=== PATIENT | male | born 1965 | race Two or more races ===

== ENCOUNTER 2020-01-14 09:55 | Outpatient (REF) | payer OTHER, SELFPAY ==
[2020-01-14 11:11] LABS: MANUAL DIFF FLAG NO
[2020-01-14 11:31] LABS: Basophils Percent Auto 0.6 % (0-2); Eosinophils Absolute Auto 0.1 X10*3/uL (0.0-0.4); Hematocrit 43.7 % (42-52); Imm Gran Abs Auto 0.01 X10*3/uL (0.00-0.03); Imm Gran Pct Auto 0.1 % (0.0-0.4); Lymphocytes Absolute Auto 3.3 X10*3/uL (1.2-4.9); Lymphocytes Percent Auto 48.4 % (20-40); Mean Corpuscular Hemoglobin 27.8 pg (27.0-33.0); Mean Corpuscular Volume 86.9 fL (80-98); Mean Platelet Volume 11.2 fL (9.4-12.4); Monocytes Absolute Auto 0.7 X10*3/uL (0.1-1.2); Monocytes Percent Auto 10.1 % (2-11); Neutrophils Absolute Auto 2.7 X10*3/uL (2.0-8.3); Neutrophils Percent Auto 39.8 % (45-73); Platelet Count 211 X10*3/uL (160-400); Red Blood Count 5.03 X10*6/uL (4.60-5.80); Red Cell Distribution Width 13.2 % (11.0-16.0); White Blood Count 6.8 X10*3/uL (4.8-10.8)
[2020-01-14 11:36] LABS: Alanine Aminotransferase 36 U/L (0-40); Albumin Level 4.2 g/dL (3.5-5.0); Alkaline Phosphatase 65 U/L (39-117); Anion Gap 13 (12-20); Aspartate Amino Transferase 24 U/L (5-37); Bilirubin Total 0.5 mg/dL (0.0-1.0); Blood Urea Nitrogen 13 mg/dL (9-16); Calcium 9.1 mg/dL (8.4-10.2); Carbon Dioxide 27 mmol/L (22-29); Chloride 103 mmol/L (96-108); Cholesterol 216 mg/dL; Estimated Glomerular Filt Rate > 60; Glucose Fasting 92 mg/dL (60-99); HDL Cholesterol 69 mg/dL; LDL Cholesterol Calculated 133 mg/dl; Potassium 4.4 mmol/l (3.3-5.1); Sodium 139 mmol/L (135-145); Total Protein 7.2 g/dL (6.5-8.0); Triglycerides 73 mg/dL
[2020-01-14 11:49] LABS: Prostate Specific Antigen Scr 2.57 ng/mL (<0.05-4.0); TSH reflex Free T4 1.99 mIU/mL (0.32-4.0)
[2020-01-19 12:23] LABS: Testosterone, Total 488 ng/dL (250-1100)
== END 2020-01-14 09:56 | disposition home or self-care (01) ==
LOC: HO.LAB 09:55
PROVIDERS: Visit Provider Family Medicine
DX: N52.9 Male erectile dysfunction, unspecified (principal); Z00.00 Encounter for general adult medical examination without abnormal findings; Z12.5 Encounter for screening for malignant neoplasm of prostate
CPT/HCPCS: 36415; 80053; 80061; 84153; 84403; 84443; 85025

== ENCOUNTER 2020-03-30 14:13 | Emergency (ER) | payer OTHER, SELFPAY ==
[2020-03-30 16:07] VITALS: BP 128/56; PULSE 85; RESP 18; TEMP 36.6; O2SAT 100; BMI 25.0
== END 2020-03-30 20:42 | disposition left against medical advice (07) ==
PROVIDERS: Emergency Provider Emergency Medicine; PCP Family Medicine
DX: F41.9 Anxiety disorder, unspecified (principal)
CPT/HCPCS: 99281; 99282

== ENCOUNTER 2020-04-01 06:01 | Outpatient (REF) | payer OTHER, SELFPAY ==
--- NOTE | ~2020-04-01 | XR_ITS ---
EXAMINATION: XR CHEST CLINICAL INFORMATION: Chest pain COMPARISON: None TECHNIQUE: 2 views of the chest were obtained. FINDINGS: No significant abnormality is noted involving the heart, lungs, mediastinum, bony thorax or soft tissues. XR/XR chest 2V IMPRESSION: No acute disease.
[2020-04-01 07:37] LABS: MANUAL DIFF FLAG NO
[2020-04-01 07:41] LABS: Basophils Absolute Auto 0.1 X10*3/uL (0.0-0.2); Basophils Percent Auto 0.7 % (0-2); Eosinophils Absolute Auto 0.1 X10*3/uL (0.0-0.4); Eosinophils Percent Auto 1.6 % (0-4); Hematocrit 40.5 % (42-52); Hemoglobin 13.2 g/dl (14.0-18.0); Imm Gran Abs Auto 0.01 X10*3/uL (0.00-0.03); Imm Gran Pct Auto 0.1 % (0.0-0.4); Lymphocytes Absolute Auto 3.7 X10*3/uL (1.2-4.9); Lymphocytes Percent Auto 54.8 % (20-40); Mean Corpuscular HGB Conc 32.6 g/dl (31.0-36.0); Mean Corpuscular Hemoglobin 28.1 pg (27.0-33.0); Mean Corpuscular Volume 86.2 fL (80-98); Mean Platelet Volume 11.6 fL (9.4-12.4); Monocytes Absolute Auto 0.7 X10*3/uL (0.1-1.2); Monocytes Percent Auto 10.6 % (2-11); Neutrophils Absolute Auto 2.2 X10*3/uL (2.0-8.3); Neutrophils Percent Auto 32.2 % (45-73); Platelet Count 197 X10*3/uL (160-400); Red Cell Distribution Width 13.2 % (11.0-16.0); White Blood Count 6.8 X10*3/uL (4.8-10.8)
[2020-04-01 07:51] LABS: Glucose Urine UA NEG (NEG); Leukocyte Esterase Urine NEG (NEG); Nitrite Urine NEG (NEG); PH 6.5 (5.0-8.0); Urine Blood NEG (NEG); Urine Ketones NEG (NEG); Urine Protein NEG (NEG-TRACE)
[2020-04-01 07:53] LABS: Appearance Urine CLEAR; Color Urine YELLOW
[2020-04-01 08:16] LABS: Alanine Aminotransferase 34 U/L (0-40); Albumin Level 4.1 g/dL (3.5-5.0); Alkaline Phosphatase 56 U/L (39-117); Anion Gap 12 (12-20); Aspartate Amino Transferase 28 U/L (5-37); Bilirubin Total 0.3 mg/dL (0.0-1.0); Blood Urea Nitrogen 14 mg/dL (9-16); Calcium 9.4 mg/dL (8.4-10.2); Carbon Dioxide 27 mmol/L (22-29); Chloride 105 mmol/L (96-108); Estimated Glomerular Filt Rate > 60; Glucose Random 101 mg/dL (60-115); Potassium 4.1 mmol/L (3.3-5.1); Sodium 140 mmol/L (135-145); Total Protein 6.8 g/dL (6.5-8.0); Troponin-I High Sensitivity < 3.5 ng/L (<3.5-35.0)
== END 2020-04-01 06:02 | disposition home or self-care (01) ==
LOC: HO.LAB 06:01
PROVIDERS: PCP Family Medicine; Visit Provider Family Medicine
DX: G47.9 Sleep disorder, unspecified (principal); R07.89 Other chest pain
CPT/HCPCS: 36415; 71046; 80053; 81003; 84484; 85025

== ENCOUNTER 2020-05-27 06:20 | Outpatient (REF) | payer OTHER, SELFPAY ==
[2020-05-27 07:43] LABS: Anion Gap 11 (12-20); Blood Urea Nitrogen 14 mg/dL (9-16); Calcium 8.9 mg/dL (8.4-10.2); Carbon Dioxide 29 mmol/L (22-29); Chloride 104 mmol/L (96-108); Estimated Glomerular Filt Rate > 60; Glucose Fasting 96 mg/dL (60-99); Potassium 4.7 mmol/L (3.3-5.1); Sodium 139 mmol/L (135-145)
== END 2020-05-27 06:21 | disposition home or self-care (01) ==
LOC: HO.LAB 06:20
PROVIDERS: Visit Provider Family Medicine
DX: R73.01 Impaired fasting glucose (principal)
CPT/HCPCS: 36415; 80048

== ENCOUNTER 2020-12-01 18:03 | Outpatient (REF) | payer OTHER, SELFPAY ==
[2020-12-01 18:10] LABS: Appearance Urine CLEAR; Color Urine YELLOW; Glucose Urine UA NEG (NEG); Leukocyte Esterase Urine NEG (NEG); Nitrite Urine NEG (NEG); Urine Blood NEG (NEG); Urine Ketones NEG (NEG); Urine Protein NEG (NEG-TRACE)
== END 2020-12-01 18:04 | disposition home or self-care (01) ==
LOC: HO.LNP 18:03
PROVIDERS: Visit Provider Family Medicine
DX: Z00.00 Encounter for general adult medical examination without abnormal findings (principal)
CPT/HCPCS: 81003

== ENCOUNTER 2020-12-07 07:09 | Outpatient (REF) | payer OTHER, SELFPAY ==
[2020-12-07 08:41] LABS: Anion Gap 11 (12-20); Blood Urea Nitrogen 14 mg/dL (9-16); Calcium 8.6 mg/dL (8.4-10.2); Carbon Dioxide 26 mmol/L (22-29); Chloride 106 mmol/L (96-108); Estimated Glomerular Filt Rate > 60; Glucose Random 96 mg/dL (60-115); Potassium 4.1 mmol/L (3.3-5.1); Sodium 139 mmol/L (135-145)
== END 2020-12-07 07:10 | disposition home or self-care (01) ==
LOC: HO.LAB 07:09
PROVIDERS: PCP Family Medicine; Visit Provider Family Medicine
DX: Z00.00 Encounter for general adult medical examination without abnormal findings (principal)
CPT/HCPCS: 36415; 80048

== ENCOUNTER → 2021-01-21 13:42 | Outpatient (BNVA) | payer OTHER, SELFPAY | PROVIDERS: PCP Family Medicine; Referring Provider Family Medicine; Visit Provider Nurse Practitioner | DX: A04.8 Other specified bacterial intestinal infections (principal); R10.13 Epigastric pain | CPT/HCPCS: 99202 ==

== ENCOUNTER 2021-02-16 09:33 | Outpatient (REF) | payer OTHER, SELFPAY ==
--- NOTE | ~2021-02-16 | US_ITS ---
EXAMINATION: US ABDOMEN COMPLETE CLINICAL INFORMATION: Epigastric pain. COMPARISON: None TECHNIQUE: Real-time imaging of the abdominal viscera. FINDINGS: PANCREAS: Normal. ABDOMINAL AORTA: The proximal, mid, and distal segments are normal in caliber. INFERIOR VENA CAVA: Visualized portions are normal. LIVER: Normal. The liver is normal in size. The liver contour is normal. Parenchymal echogenicity is normal. No focal hepatic lesion. There is no intrahepatic biliary duct dilatation seen. GALLBLADDER: Normal. The gallbladder is physiologically distended without evidence of stones, sludge, polyps, wall thickening or pericholecystic fluid. COMMON BILE DUCT: Normal in caliber measuring 0.2 cm in diameter. RIGHT KIDNEY: Normal. No hydronephrosis. No renal calculi or focal parenchymal lesions. The kidney measures 9.1 cm in maximum dimension. LEFT KIDNEY: There is a small 7 mm cyst in the midpole. No hydronephrosis or renal calculi. The kidney measures 9.9 cm in maximum dimension. SPLEEN: Normal. The spleen measures 8.3 cm in maximum dimension. FREE FLUID: None. US/US abdomen complete IMPRESSION: Small left renal cyst otherwise unremarkable exam.
== END 2021-02-16 09:34 | disposition home or self-care (01) ==
LOC: HO.HMGCX 09:33
PROVIDERS: Visit Provider Nurse Practitioner
DX: R10.13 Epigastric pain (principal)
CPT/HCPCS: 76700

== ENCOUNTER 2021-02-26 07:13 | Outpatient (REF) | payer OTHER, SELFPAY ==
[2021-02-26 07:36] LABS: MANUAL DIFF FLAG NO
[2021-02-26 08:13] LABS: Basophils Percent Auto 0.5 % (0-2); Eosinophils Absolute Auto 0.1 X10*3/uL (0.0-0.4); Eosinophils Percent Auto 1.1 % (0-4); Hematocrit 41.7 % (42.0-52.0); Hemoglobin 13.2 g/dl (14.0-18.0); Imm Gran Abs Auto 0.01 X10*3/uL (0.00-0.03); Imm Gran Pct Auto 0.1 % (0.0-0.4); Lymphocytes Absolute Auto 3.8 X10*3/uL (1.2-4.9); Lymphocytes Percent Auto 51.3 % (20-40); Mean Corpuscular HGB Conc 31.7 g/dl (31.0-36.0); Mean Corpuscular Hemoglobin 27.3 pg (27.0-33.0); Mean Corpuscular Volume 86.2 fL (80.0-98.0); Mean Platelet Volume 10.4 fL (9.4-12.4); Monocytes Absolute Auto 0.7 X10*3/uL (0.1-1.2); Monocytes Percent Auto 9.2 % (2-11); Neutrophils Absolute Auto 2.8 x10*3/uL (2.0-8.3); Neutrophils Percent Auto 37.8 % (45-73); Platelet Count 220 X10*3/uL (160-400); Red Blood Count 4.84 X10*6/uL (4.60-5.80); Red Cell Distribution Width 13.1 % (11.0-16.0); White Blood Count 7.5 X10*3/uL (4.8-10.8)
[2021-02-26 08:48] LABS: Alanine Aminotransferase 37 U/L (0-40); Alkaline Phosphatase 74 U/L (39-117); Anion Gap 9 (12-20); Aspartate Amino Transferase 29 U/L (5-37); Bilirubin Total 0.3 mg/dL (0.0-1.0); Blood Urea Nitrogen 13 mg/dL (9-16); Carbon Dioxide 28 mmol/L (22-29); Chloride 106 mmol/L (96-108); Cholesterol 210 mg/dL; Estimated Glomerular Filt Rate > 60; Glucose Fasting 97 mg/dL (60-99); HDL Cholesterol 59 mg/dL; LDL Cholesterol Calculated 133 mg/dl; Potassium 4.2 mmol/L (3.3-5.1); Sodium 139 mmol/L (135-145); Triglycerides 91 mg/dL
[2021-02-26 09:13] LABS: Prostate Specific Antigen Scr 6.13 ng/mL (<0.05-4.0); TSH reflex Free T4 3.24 uIU/mL (0.32-4.0)
[2021-02-26 10:15] LABS: Appearance Urine CLEAR; Color Urine YELLOW; Glucose Urine UA NEG (NEG); Leukocyte Esterase Urine NEG (NEG); Nitrite Urine NEG (NEG); Urine Blood NEG (NEG); Urine Ketones NEG (NEG); Urine Protein NEG (NEG-TRACE)
== END 2021-02-26 07:14 | disposition home or self-care (01) ==
LOC: HO.LAB 07:13
PROVIDERS: Visit Provider Family Medicine
DX: Z00.00 Encounter for general adult medical examination without abnormal findings (principal); Z12.5 Encounter for screening for malignant neoplasm of prostate
CPT/HCPCS: 36415; 80053; 80061; 81003; 84153; 84443; 85025

== ENCOUNTER → 2021-03-03 07:21 | Outpatient (BNVA) | payer OTHER, SELFPAY | PROVIDERS: PCP Family Medicine; Referring Provider Family Medicine; Visit Provider Nurse Practitioner | DX: R10.13 Epigastric pain (principal); A04.8 Other specified bacterial intestinal infections | CPT/HCPCS: 99212 ==

== ENCOUNTER 2021-03-03 09:08 | Outpatient (REF) | payer OTHER, SELFPAY | END 2021-03-03 09:09 | disposition home or self-care (01) | LOC: HO.LNP 09:08 | PROVIDERS: Visit Provider Nurse Practitioner | DX: A04.8 Other specified bacterial intestinal infections (principal) | CPT/HCPCS: 87338 ==

== ENCOUNTER 2021-03-26 07:06 | Outpatient (REF) | payer OTHER, SELFPAY ==
[2021-03-26 07:25] LABS: MANUAL DIFF FLAG NO
[2021-03-26 08:03] LABS: Basophils Percent Auto 0.5 % (0-2); Eosinophils Absolute Auto 0.1 X10*3/uL (0.0-0.4); Hemoglobin 13.2 g/dl (14.0-18.0); Imm Gran Abs Auto 0.01 X10*3/uL (0.00-0.03); Imm Gran Pct Auto 0.2 % (0.0-0.4); Immature Retic Fraction 11.1 % (2.3-13.4); Lymphocytes Absolute Auto 3.5 X10*3/uL (1.2-4.9); Lymphocytes Percent Auto 56.9 % (20-40); Mean Corpuscular HGB Conc 32.2 g/dl (31.0-36.0); Mean Corpuscular Hemoglobin 27.6 pg (27.0-33.0); Mean Corpuscular Volume 85.6 fL (80.0-98.0); Mean Platelet Volume 10.2 fL (9.4-12.4); Monocytes Absolute Auto 0.5 X10*3/uL (0.1-1.2); Monocytes Percent Auto 8.9 % (2-11); Neutrophils Percent Auto 32.5 % (45-73); Platelet Count 220 X10*3/uL (160-400); Red Blood Count 4.79 X10*6/uL (4.60-5.80); Red Cell Distribution Width 12.9 % (11.0-16.0); Retic HGB Equivalent 33.2 pg (30.0-35.0); Reticulocyte Percent 1.1 % (0.5-1.8); Reticulocytes Absolute 0.051 X10*6/uL (0.026-0.095); White Blood Count 6.1 X10*3/uL (4.8-10.8)
[2021-03-26 08:25] LABS: Alanine Aminotransferase 50 U/L (0-40); Albumin Level 4.1 g/dL (3.5-5.0); Alkaline Phosphatase 73 U/L (39-117); Anion Gap 9 (12-20); Aspartate Amino Transferase 37 U/L (5-37); Bilirubin Total 0.6 mg/dL (0.0-1.0); Blood Urea Nitrogen 17 mg/dL (9-16); Calcium 9.3 mg/dL (8.4-10.2); Carbon Dioxide 29 mmol/L (22-29); Chloride 105 mmol/L (96-108); Cholesterol 192 mg/dL; Estimated Glomerular Filt Rate > 60; Glucose Random 94 mg/dL (60-115); HDL Cholesterol 54 mg/dL; Iron 81 mcg/dL (45-160); LDL Cholesterol Calculated 125 mg/dl; Percent Iron Saturation 24 % (15-50); Potassium 4.4 mmol/L (3.3-5.1); Sodium 139 mmol/L (135-145); Total Iron Binding Capacity 343 mcg/dL (228-428); Total Protein 7.1 g/dL (6.5-8.0); Triglycerides 65 mg/dL; Unsaturated Iron Binding 262 ug/dL
[2021-03-26 08:45] LABS: Ferritin 47 ng/mL (20-250); TSH reflex Free T4 3.13 uIU/mL (0.32-4.0)
[2021-03-26 08:50] LABS: Appearance Urine CLEAR; Color Urine YELLOW; Glucose Urine UA NEG (NEG); Leukocyte Esterase Urine NEG (NEG); Nitrite Urine NEG (NEG); Specific Gravity - Urine 1.025 (1.005-1.025); Urine Blood NEG (NEG); Urine Ketones NEG (NEG); Urine Protein NEG (NEG-TRACE)
[2021-03-28 09:02] LABS: Folate 17.4 ng/mL (> or = 4.0); Vitamin B12 859 pg/mL (200-900)
[2021-03-28 14:17] LABS: Haptoglobin 88 mg/dL (43-212)
== END 2021-03-26 07:07 | disposition home or self-care (01) ==
LOC: HO.LAB 07:06
PROVIDERS: PCP Family Medicine; Visit Provider Family Medicine
DX: Z00.00 Encounter for general adult medical examination without abnormal findings (principal); E53.8 Deficiency of other specified B group vitamins; D64.9 Anemia, unspecified
CPT/HCPCS: 36415; 80053; 80061; 81003; 82607; 82728; 82746; 83010; 83540; 84443; 85025; 85045

== ENCOUNTER → 2021-04-14 07:13 | Outpatient (BNVA) | payer OTHER, SELFPAY | PROVIDERS: PCP Family Medicine; Visit Provider Nurse Practitioner | DX: A04.8 Other specified bacterial intestinal infections (principal) | CPT/HCPCS: 99212 ==

== ENCOUNTER 2021-04-25 09:44 | Outpatient (REF) | payer OTHER, SELFPAY ==
[2021-04-25 11:46] LABS: Alanine Aminotransferase 40 U/L (0-40); Albumin Level 4.1 g/dL (3.5-5.0); Alkaline Phosphatase 68 U/L (39-117); Anion Gap 12 (12-20); Aspartate Amino Transferase 31 U/L (5-37); Bilirubin Direct 0.2 mg/dL (0.0-0.5); Bilirubin Total 0.7 mg/dL (0.0-1.0); Blood Urea Nitrogen 12 mg/dL (9-16); Calcium 9.2 mg/dL (8.4-10.2); Carbon Dioxide 27 mmol/L (22-29); Chloride 101 mmol/L (96-108); Estimated Glomerular Filt Rate > 60; Glucose Fasting 96 mg/dL (60-99); Potassium 4.3 mmol/L (3.3-5.1); Sodium 136 mmol/L (135-145); Total Protein 6.9 g/dL (6.5-8.0)
== END 2021-04-25 09:45 | disposition home or self-care (01) ==
LOC: HO.LAB 09:44
PROVIDERS: PCP Family Medicine; Visit Provider Family Medicine
DX: Z00.00 Encounter for general adult medical examination without abnormal findings (principal); R74.01 Elevation of levels of liver transaminase levels
CPT/HCPCS: 36415; 80053; 80076; 82248

== ENCOUNTER 2021-05-27 06:32 | Outpatient (REF) | payer OTHER, SELFPAY ==
--- NOTE | ~2021-05-27 | XR_ITS ---
EXAMINATION: XR ABDOMEN KUB CLINICAL INDICATION: Unspecified abdominal pain COMPARISON: Abdominal ultrasound February 16, 2021 TECHNIQUE: AP view of the abdomen. FINDINGS: No dilated air-filled loops of small bowel to suggest an obstructive process. There is a moderate to severe stool burden throughout the majority the colon. There are postsurgical changes of the lumbosacral junction. Visualized lung bases are well aerated. Prominent vascular calcifications of the pelvis. XR/XR KUB IMPRESSION: Moderate to severe colonic stool burden suggesting constipation.
[2021-05-27 06:51] LABS: MANUAL DIFF FLAG NO
[2021-05-27 07:09] LABS: Basophils Percent Auto 0.6 % (0-2); Eosinophils Absolute Auto 0.1 X10*3/uL (0.0-0.4); Eosinophils Percent Auto 1.1 % (0-4); Hematocrit 41.9 % (42.0-52.0); Hemoglobin 13.6 g/dl (14.0-18.0); Imm Gran Abs Auto 0.02 X10*3/uL (0.00-0.03); Imm Gran Pct Auto 0.3 % (0.0-0.4); Lymphocytes Absolute Auto 3.4 X10*3/uL (1.2-4.9); Lymphocytes Percent Auto 54.7 % (20-40); Mean Corpuscular HGB Conc 32.5 g/dl (31.0-36.0); Mean Corpuscular Hemoglobin 27.8 pg (27.0-33.0); Mean Corpuscular Volume 85.7 fL (80.0-98.0); Mean Platelet Volume 10.7 fL (9.4-12.4); Monocytes Absolute Auto 0.6 X10*3/uL (0.1-1.2); Monocytes Percent Auto 8.7 % (2-11); Neutrophils Absolute Auto 2.2 x10*3/uL (2.0-8.3); Neutrophils Percent Auto 34.6 % (45-73); Platelet Count 197 X10*3/uL (160-400); Red Blood Count 4.89 X10*6/uL (4.60-5.80); Red Cell Distribution Width 12.8 % (11.0-16.0); White Blood Count 6.3 X10*3/uL (4.8-10.8)
[2021-05-27 07:52] LABS: Alanine Aminotransferase 26 U/L (0-40); Alkaline Phosphatase 61 U/L (39-117); Anion Gap 10 (12-20); Aspartate Amino Transferase 27 U/L (5-37); Bilirubin Total 0.5 mg/dL (0.0-1.0); Blood Urea Nitrogen 16 mg/dL (9-16); Calcium 9.3 mg/dL (8.4-10.2); Carbon Dioxide 27 mmol/L (22-29); Chloride 104 mmol/L (96-108); Estimated Glomerular Filt Rate > 60; Glucose Random 100 mg/dL (60-115); Potassium 4.2 mmol/L (3.3-5.1); Sodium 137 mmol/L (135-145); Total Protein 6.7 g/dL (6.5-8.0)
[2021-05-27 08:05] LABS: Appearance Urine CLEAR; Color Urine YELLOW; Glucose Urine UA NEG (NEG); Leukocyte Esterase Urine NEG (NEG); Nitrite Urine NEG (NEG); PH 6.5 (5.0-8.0); Urine Blood NEG (NEG); Urine Ketones NEG (NEG); Urine Protein NEG (NEG-TRACE)
== END 2021-05-27 06:33 | disposition home or self-care (01) ==
LOC: HO.XRAY 06:32
PROVIDERS: PCP Family Medicine; Visit Provider Family Medicine
DX: Z00.00 Encounter for general adult medical examination without abnormal findings (principal); R10.9 Unspecified abdominal pain
CPT/HCPCS: 36415; 74018; 80053; 81003; 85025

== ENCOUNTER 2021-06-10 11:04 | Outpatient (REF) | payer OTHER, SELFPAY ==
[2021-06-10 12:31] LABS: MANUAL DIFF FLAG NO
[2021-06-10 12:59] LABS: Basophils Percent Auto 0.6 % (0-2); Eosinophils Absolute Auto 0.1 X10*3/uL (0.0-0.4); Eosinophils Percent Auto 0.8 % (0-4); Hematocrit 41.4 % (42.0-52.0); Hemoglobin 13.3 g/dl (14.0-18.0); Imm Gran Abs Auto 0.02 X10*3/uL (0.00-0.03); Imm Gran Pct Auto 0.3 % (0.0-0.4); Lymphocytes Absolute Auto 2.8 X10*3/uL (1.2-4.9); Lymphocytes Percent Auto 42.2 % (20-40); Mean Corpuscular HGB Conc 32.1 g/dl (31.0-36.0); Mean Corpuscular Hemoglobin 27.7 pg (27.0-33.0); Mean Corpuscular Volume 86.3 fL (80.0-98.0); Mean Platelet Volume 10.4 fL (9.4-12.4); Monocytes Absolute Auto 0.5 X10*3/uL (0.1-1.2); Monocytes Percent Auto 7.8 % (2-11); Neutrophils Absolute Auto 3.2 x10*3/uL (2.0-8.3); Neutrophils Percent Auto 48.3 % (45-73); Platelet Count 203 X10*3/uL (160-400); Red Cell Distribution Width 13.2 % (11.0-16.0); White Blood Count 6.6 X10*3/uL (4.8-10.8)
[2021-06-10 13:22] LABS: Iron 80 mcg/dL (45-160); Percent Iron Saturation 23 % (15-50); Total Iron Binding Capacity 347 mcg/dL (228-428); Unsaturated Iron Binding 267 ug/dL
[2021-06-10 13:38] LABS: Prostate Specific Antigen 5.52 ng/mL (<0.05-4.0)
[2021-06-10 14:31] LABS: Folate > 20.0 ng/mL (> or = 4.0); Vitamin B12 848 pg/mL (200-900)
== END 2021-06-10 11:05 | disposition home or self-care (01) ==
LOC: HO.LAB 11:04
PROVIDERS: Absent Provider Family Medicine; PCP Family Medicine; Visit Provider Urology
DX: Z00.00 Encounter for general adult medical examination without abnormal findings (principal); Z12.5 Encounter for screening for malignant neoplasm of prostate; N13.8 Other obstructive and reflux uropathy; N40.1 Benign prostatic hyperplasia with lower urinary tract symptoms; R39.15 Urgency of urination; D64.9 Anemia, unspecified; E53.8 Deficiency of other specified B group vitamins
CPT/HCPCS: 36415; 51798; 82607; 82746; 83540; 84153; 85025; 99202

== ENCOUNTER → 2021-08-05 08:12 | Outpatient (BNVA) | payer OTHER, SELFPAY | PROVIDERS: PCP Family Medicine; Referring Provider Family Medicine; Visit Provider Nurse Practitioner | DX: K64.9 Unspecified hemorrhoids (principal) | CPT/HCPCS: 99212 ==

== ENCOUNTER → 2021-08-17 09:13 | Outpatient (BNVA) | payer OTHER, SELFPAY | PROVIDERS: PCP Family Medicine; Visit Provider Urology | DX: R39.15 Urgency of urination (principal); R39.12 Poor urinary stream; R97.20 Elevated prostate specific antigen [PSA] | CPT/HCPCS: Q3014 ==

== ENCOUNTER 2021-08-19 07:27 | Outpatient (REF) | payer OTHER, SELFPAY | END 2021-08-19 07:28 | disposition home or self-care (01) | LOC: HO.LAB 07:27 | PROVIDERS: PCP Family Medicine; Visit Provider Urology | DX: Z12.5 Encounter for screening for malignant neoplasm of prostate (principal); N40.1 Benign prostatic hyperplasia with lower urinary tract symptoms; N13.8 Other obstructive and reflux uropathy | CPT/HCPCS: 36415; 84153 ==

== ENCOUNTER → 2021-08-24 15:42 | Outpatient (BNVA) | payer OTHER, SELFPAY | PROVIDERS: PCP Family Medicine; Visit Provider Surgery | DX: K64.8 Other hemorrhoids (principal); K64.4 Residual hemorrhoidal skin tags | CPT/HCPCS: 46600; 99202 ==

== ENCOUNTER → 2021-09-28 09:21 | Outpatient (BNVA) | payer OTHER, SELFPAY | PROVIDERS: PCP Family Medicine; Visit Provider Urology | DX: R39.12 Poor urinary stream (principal) | CPT/HCPCS: Q3014 ==

== ENCOUNTER 2021-10-27 11:58 | Outpatient (REF) | payer OTHER, SELFPAY ==
[2021-10-27 12:17] VITALS: BP 127/69; PULSE 77; RESP 16; TEMP 36.7; O2SAT 95; BMI 24.5
[2021-10-27 12:40] VITALS: BP 96/33; PULSE 52; RESP 16; O2SAT 100
--- NOTE | 2021-10-27 12:40 | W.PM.OPN ---
Operative Note Operative Note Date of Service: 10/27/21 Narrative: Preoperative diagnosis: Elevated PSA Postoperative diagnosis: Elevated PSA Procedure: 1. transrectal ultrasound measurement of prostate 2. transrectal ultrasound-guided pudendal nerve block 3. transrectal ultrasound-guided prostate biopsy 12 core Surgeon: Dr. Ranjit Prajapati Anesthetic: Local Indications for procedure: Elevated PSA 5.4 on 5AR Procedure: After informed consent was verified, the patient was brought into the procedure area and lay left-hand side down on the table. Patient identity confirmed. Perioperative antibiotics confirmed. Safety pause time out performed. DANIEL performed to dilate rectal sphincter Iodine 10cc with Gel was placed per rectum Ultrasound probe was placed per rectum The prostate was measured in 3 dimensions Total volume equals 45 gm No cystic structures were noted Yes calcifications were noted at the surgical margin The prostate was otherwise homogeneous in nature An ultrasound-guided pudendal nerve block was performed using 10 cc of 1% lidocaine. 8 cc was placed at the base and 2 cc of the apex. A 12 core biopsy was performed with 6 cores each side. Two cores were taken at the apex, mid and base. Cores were spaced between lateral and medial. He tolerated the procedure well. Was able to ambulate to bathroom after 5 minutes. Printed instructions regarding antibiotic use and common side effects such as low-grade temperature, potential infection and bleeding were given Pathology: 12 core prostate biopsy.
[2021-10-27 12:50] VITALS: BP 98/60; PULSE 54; RESP 16; O2SAT 99
[2021-10-27 13:02] VITALS: BP 110/55; PULSE 63; RESP 16; O2SAT 100
== END 2021-10-27 11:59 | disposition home or self-care (01) ==
LOC: HO.MS 11:58
PROVIDERS: PCP Family Medicine; Visit Provider Urology
PROC: (CPT 55700; principal; 2021-10-27 12:10)
DX: R97.20 Elevated prostate specific antigen [PSA] (principal); R39.12 Poor urinary stream; F32.A Depression, unspecified; Z88.0 Allergy status to penicillin; F41.1 Generalized anxiety disorder; Z91.041 Radiographic dye allergy status
CPT/HCPCS: 55700; 76942; 88305; 88344

== ENCOUNTER → 2021-11-04 11:20 | Outpatient (BNVA) | payer OTHER, SELFPAY | PROVIDERS: PCP Family Medicine; Visit Provider Urology | DX: R40.0 Somnolence (principal); R06.83 Snoring; R97.20 Elevated prostate specific antigen [PSA]; R39.15 Urgency of urination | CPT/HCPCS: 99202; Q3014 ==

== ENCOUNTER → 2021-11-22 10:01 | Outpatient (REF) | payer OTHER, SELFPAY | LOC: HO.SL 10:01 | PROVIDERS: PCP Family Medicine; Visit Provider Nurse Practitioner Family | DX: Z13.89 Encounter for screening for other disorder (principal) ==

== ENCOUNTER → 2021-12-01 09:23 | Outpatient (BNVA) | payer OTHER, SELFPAY | PROVIDERS: PCP Family Medicine; Visit Provider Surgery | DX: K64.8 Other hemorrhoids (principal) | CPT/HCPCS: 99212 ==

== ENCOUNTER 2021-12-20 09:23 | Outpatient (REF) | payer OTHER, SELFPAY ==
[2021-12-20 14:19] LABS: Influenza A PCR NEGATIVE (Negative); Influenza B PCR NEGATIVE (Negative); Resp Syncy Virus RNA Qual PCR NEGATIVE (Negative); SARS COV2 PCR INHOUSE POSITIVE (Negative)
== END 2021-12-20 09:24 | disposition home or self-care (01) ==
LOC: HO.LAB 09:23
PROVIDERS: Visit Provider Hospitalist
DX: Z20.822 Contact with and (suspected) exposure to COVID-19 (principal)
CPT/HCPCS: 0241U

== ENCOUNTER → 2022-02-02 13:59 | Outpatient (BNVA) | payer OTHER, SELFPAY | PROVIDERS: PCP Family Medicine; Visit Provider Urology | DX: N41.9 Inflammatory disease of prostate, unspecified (principal) | CPT/HCPCS: Q3014 ==

== ENCOUNTER 2022-02-20 06:48 | Outpatient (REF) | payer OTHER, SELFPAY ==
[2022-02-20 08:19] LABS: Appearance Urine Clear; Color Urine Yellow; Glucose Urine UA Negative (Negative); Leukocyte Esterase Urine Negative (Negative); Nitrite Urine Negative (Negative); PH 6.5 (5.0-9.0); Urine Blood Negative (Negative); Urine Ketones Negative (Negative); Urine Protein Negative (Neg-Trace)
[2022-02-20 08:50] LABS: Alanine Aminotransferase 43 U/L (0-40); Albumin Level 4.1 g/dL (3.5-5.0); Alkaline Phosphatase 83 U/L (39-117); Anion Gap 13 (12-20); Aspartate Amino Transferase 37 U/L (5-37); Bilirubin Total 0.4 mg/dL (0.0-1.0); Blood Urea Nitrogen 12 mg/dL (9-16); Carbon Dioxide 28 mmol/L (22-29); Chloride 103 mmol/L (96-108); Cholesterol 228 mg/dL; Estimated Glomerular Filt Rate > 60; Glucose Fasting 92 mg/dL (60-99); HDL Cholesterol 70 mg/dL; LDL Cholesterol Calculated 143 mg/dl; Potassium 3.8 mmol/L (3.3-5.1); Sodium 140 mmol/L (135-145); Total Protein 6.9 g/dL (6.5-8.0); Triglycerides 78 mg/dL
[2022-02-20 08:52] LABS: Creatinine Urine 142.19 mg/dL; Microalbumin Urine < 5.0 mg/L
[2022-02-20 09:08] LABS: TSH reflex Free T4 4.14 uIU/mL (0.32-4.0)
[2022-02-20 09:54] LABS: Free T4 (Free Thyroxine) 0.93 ng/dL (0.71-1.85)
== END 2022-02-20 06:49 | disposition home or self-care (01) ==
LOC: HO.LAB 06:48
PROVIDERS: PCP Family Medicine; Visit Provider Family Medicine
DX: Z00.00 Encounter for general adult medical examination without abnormal findings (principal); I10 Essential (primary) hypertension
CPT/HCPCS: 36415; 80053; 80061; 81003; 82043; 84439; 84443

== ENCOUNTER 2022-03-27 13:36 | Outpatient (REF) | payer OTHER, SELFPAY ==
--- NOTE | ~2022-03-27 | XR_ITS ---
EXAMINATION: XR KNEE, RIGHT CLINICAL INFORMATION: Reason for Exam M25.561 - Pain in right knee COMPARISON: None TECHNIQUE: 2 views of the knee FINDINGS: No acute fracture or dislocation. Small patellar tendon enthesophyte. Joint spaces are maintained. No joint effusion. Soft tissues are unremarkable. XR/XR knee RT 2V IMPRESSION: * No acute osseous abnormality. * Small patellar tendon enthesophyte. Joint spaces are maintained.
== END 2022-03-27 13:37 | disposition home or self-care (01) ==
LOC: HO.XRAY 13:36
PROVIDERS: PCP Family Medicine; Visit Provider Family Medicine
DX: M25.561 Pain in right knee (principal)
CPT/HCPCS: 73560

== ENCOUNTER 2022-05-20 07:08 | Outpatient (REF) | payer OTHER, SELFPAY ==
[2022-05-20 08:06] LABS: Alanine Aminotransferase 19 U/L (0-40); Alkaline Phosphatase 63 U/L (39-117); Anion Gap 12 (12-20); Aspartate Amino Transferase 24 U/L (5-37); Bilirubin Total 0.9 mg/dL (0.0-1.0); Blood Urea Nitrogen 14 mg/dL (9-16); Calcium 8.8 mg/dL (8.4-10.2); Carbon Dioxide 26 mmol/L (22-29); Chloride 104 mmol/L (96-108); Cholesterol 199 mg/dL; Estimated Glomerular Filt Rate > 60; Glucose Fasting 98 mg/dL (60-99); HDL Cholesterol 57 mg/dL; LDL Cholesterol Calculated 131 mg/dl; Potassium 4.2 mmol/L (3.3-5.1); Sodium 138 mmol/L (135-145); Total Protein 6.5 g/dL (6.5-8.0); Triglycerides 58 mg/dL
[2022-05-20 08:23] LABS: Free T4 (Free Thyroxine) 1.03 ng/dL (0.71-1.85); Thyroid Stimulating Hormone 2.51 uIU/mL (0.32-4.0)
[2022-05-21 18:09] LABS: Triiodothyronine T3 Total 116 ng/dL (76-181)
== END 2022-05-20 07:09 | disposition home or self-care (01) ==
LOC: HO.LAB 07:08
PROVIDERS: PCP Family Medicine; Visit Provider Family Medicine
DX: Z00.00 Encounter for general adult medical examination without abnormal findings (principal); R74.01 Elevation of levels of liver transaminase levels; E03.9 Hypothyroidism, unspecified; R79.89 Other specified abnormal findings of blood chemistry; E78.00 Pure hypercholesterolemia, unspecified
CPT/HCPCS: 36415; 80053; 80061; 84439; 84443; 84480

== ENCOUNTER 2022-06-29 06:36 | Outpatient (REF) | payer OTHER, SELFPAY ==
--- NOTE | ~2022-06-29 | XR_ITS ---
EXAMINATION: XR KNEE AP STANDING CLINICAL INFORMATION: Pain COMPARISON: Right knee x-ray March 2022 TECHNIQUE: AP bilateral standing view of the knees and sunrise view of the right knee was obtained. FINDINGS: Bone alignment is normal. No fracture or dislocation. Normal joint spaces. Normal soft tissues. XR/XR knee standing BI IMPRESSION: Normal knees.
--- NOTE | ~2022-06-29 | XR_ITS ---
EXAMINATION: XR KNEE AP STANDING CLINICAL INFORMATION: Pain COMPARISON: Right knee x-ray March 2022 TECHNIQUE: AP bilateral standing view of the knees and sunrise view of the right knee was obtained. FINDINGS: Bone alignment is normal. No fracture or dislocation. Normal joint spaces. Normal soft tissues. XR/XR knee RT 1V IMPRESSION: Normal knees.
== END 2022-06-29 06:37 | disposition home or self-care (01) ==
LOC: HO.HOSX 06:36
PROVIDERS: Visit Provider Physician Assistant
DX: M17.11 Unilateral primary osteoarthritis, right knee (principal); M25.562 Pain in left knee; Z79.899 Other long term (current) drug therapy
CPT/HCPCS: 73560; 73565; 99202

== ENCOUNTER → 2022-07-24 10:07 | Outpatient (BNVA) | payer OTHER, SELFPAY | PROVIDERS: PCP Family Medicine; Visit Provider Physician Assistant | DX: M17.11 Unilateral primary osteoarthritis, right knee (principal) | CPT/HCPCS: 20610; 99212; J1040 ==

== ENCOUNTER 2022-07-27 07:25 | Outpatient (REF) | payer OTHER, SELFPAY ==
[2022-07-27 08:26] LABS: PSA,Total (Free>4and<10) 2.41 ng/mL (0.00-4.00)
== END 2022-07-27 07:26 | disposition home or self-care (01) ==
LOC: HO.LAB 07:25
PROVIDERS: PCP Family Medicine; Visit Provider Urology
DX: R97.20 Elevated prostate specific antigen [PSA] (principal); Z12.5 Encounter for screening for malignant neoplasm of prostate
CPT/HCPCS: 36415; 84153

== ENCOUNTER → 2022-07-28 08:43 | Outpatient (BNVA) | payer OTHER, SELFPAY | PROVIDERS: PCP Family Medicine; Visit Provider Urology | DX: N52.9 Male erectile dysfunction, unspecified (principal); R97.20 Elevated prostate specific antigen [PSA]; R39.15 Urgency of urination | CPT/HCPCS: Q3014 ==

== ENCOUNTER 2023-01-02 09:16 | Outpatient (AMB) | payer OTHER, SELFPAY ==
--- NOTE | 2023-01-02 09:17 | A.OFFVIS_ITS ---
Intake Intake Visit Reasons: 2m follow up Intake Note: Patient is Present for Telephone Follow Up Urology Med: Finasteride, Oxybutynin Antibiotic Allergy: Penicillins Blood Thinner: None Allergies Penicillins Allergy (Severe, Verified 01/02/23 09:19) Rash iodine Allergy (Intermediate, Verified 01/02/23 09:19) Rash seafood Allergy (Intermediate, Verified 01/02/23 09:19) Anaphylaxis blue dye Adverse Reaction (Severe, Verified 01/02/23 09:19) Swelling HPI HPI Comments History of Present Illness Details Yo is a pleasant male. He is a patient Dr. Zee. He is seen for the following urologic conditions - elevated PSA - lower urinary tract symptoms - prostatitis Telemedicine evaluation 15 minute consultation [email or web address] Video attempted Nocturia ranges from 2-4x - untreated sleep apnea Unable to tolerate tadalafil secondary to back pain Trial oxybuytinin for 2 months - was effective - had changed diet and that has been hel pful Twelve month follow-up PSA Lower urinary tract symptoms Had been seen with his PCP Referred for urgency and frequency Current therapy oxybutynin Prior therapy terazosin and tamsulosin not tolerated - tadalafil back pain PSA 06/26 5.5, 08/26 5.4, 07/28 2.4 Prostate biopsy 09/26 inflammation, no cancer Sleep Apnea Anxiety with machine Prior trial tadalafil effective but unable to tolerate secondary to back pain PFSH Medical History Hemorrhoids with complication Depression Anxiety Surgical History Hx of biopsy History of back surgery Family History Mother Epilepsy Father Cancer Brother No problems noted. 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 ) Cognitive needs: No Hearing needs: No Vision needs: No Review of Systems Const All systems reviewed & are unremarkable except as noted in HPI and below Reports no additional complaints Resp Reports no additional complaints GI Reports no additional complaints Reports as per HPI Musc Reports no additional complaints Physical Exam Telemedicine evaluation Appropriate responses Regular breathing rate and rhythm HEENT Head: Yes normal to inspection Ears: hearing grossly normal bilaterally Eyes General: appearance normal, both eyes and all related structures Neck Neck: Yes normal visual inspection Chest Chest palpation & inspection: normal inspection of the chest Resp Effort & Inspection: normal respiratory effort and able to speak in complete sentences Assessment & Plan Assessment & Plan (1) Elevated PSA: Code(s): R97.20 - Elevated prostate specific antigen [PSA] (2) Prostatitis: Code(s): N41.9 - Inflammatory disease of prostate, unspecified Plan 12m f/u PSA Orders: Orders PSA,Total (Free>4and<10) 364 Days R97.20 - Elevated prostate specific antigen [PSA] Medications: Discontinued finasteride Discontinued Reason: Patient no longer taking 5 mg PO DAILY 90 days 90 tabs 1RF N40.1 - Benign prostatic hyperplasia with lower urinary tract symptoms oxybutynin chloride ER Discontinued Reason: Patient Completed Course 10 mg PO DAILY 30 days 30 tabs 2RF R39.15 - Urgency of urination Patient Instructions: Imaging studies, laboratory and physical exam results were discussed and reviewed in detail. No major barriers to patient understanding were identified. An opportunity to ask questions regarding the treatment plan was provided. All questions were answered. The patient expressed understanding and agreement with the above treatment plan. The patient is aware they should contact our office by phone for worsening of their current condition or the appearance of new urologic symptoms. Compliance is encouraged with any medications and followup testing that is ordered. It is a privilege to participate in the urologic care of your patient. If you have any questions or concerns regarding treatment for the above conditions, or other urologic issues, please do not hesitate to contact me. The office telephone contact is [phone]. This note is constructed using voice recognition software. While every effort has been made to ensure accuracy city plant supervisor errors may have been included. Yours sincerely, Dr Ranjit Prajapati MD, [facility] - Urology Providers of Expert, Compassionate Care for the Genitourinary System Telehealth Telehealth Location of provider rendering services: practice address Location of patient: address on file Patient Identification confirmed using: Name, : Yes Telehealth method: voice only Patient verbally consented to treatment: Yes Patient verbally consented to billing insurance company: Yes Patient informed of any privacy concerns related to visit: Yes Coding Level of Care Code Tele Est Pt Level 3 (16504) Diagnoses Elevated PSA R97.20 Prostatitis N41.9
== END 2023-01-02 10:27 | disposition home or self-care (01) ==
LOC: HO.HUSH 09:16
PROVIDERS: PCP Family Medicine; Visit Provider Urology
DX: R97.20 Elevated prostate specific antigen [PSA] (principal); N41.9 Inflammatory disease of prostate, unspecified
CPT/HCPCS: 99442

== ENCOUNTER → 2023-01-02 09:16 | Outpatient (BNVA) | payer OTHER, SELFPAY | PROVIDERS: PCP Family Medicine; Visit Provider Urology ==

== ENCOUNTER 2023-01-08 08:12 | Outpatient (AMB) | payer OTHER, SELFPAY ==
--- NOTE | 2023-01-08 08:23 | A.OFFVIS_ITS ---
Intake Intake Visit Reasons: OV-Right knee injection Intake Note: Yo is a 57 year old male who presents today for a follow up of right knee., last injection 07/24/22. Patient reports last injection provided him relief until around November however he states last injection made him feel disoriented. He would like to discuss a repeat of injection. Allergies Penicillins Allergy (Severe, Verified 01/08/23 08:31) Rash iodine Allergy (Intermediate, Verified 01/08/23 08:31) Rash seafood Allergy (Intermediate, Verified 01/08/23 08:31) Anaphylaxis blue dye Adverse Reaction (Severe, Verified 01/08/23 08:31) Swelling HPI OV-Right knee injection HPI Details 57-year-old male who returns to the [facility] today for a follow-up of right knee pain. He continues to have intermittent pain in his knee which fluctuates in intensity between days. He finds relief with heating and occasional Tylenol use. He had his last injection on 07/24/22 which provided him relief until about November. He would like to repeat the injection. [facility] Medical History Hemorrhoids with complication Depression Anxiety Surgical History Hx of biopsy History of back surgery Family History Mother Epilepsy Father Cancer Brother No problems noted. 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 ) Cognitive needs: No Hearing needs: No Vision needs: No Review of Systems Const All systems reviewed & are unremarkable except as noted in HPI and below Physical Exam Const General: cooperative, healthy appearing, comfortable, no acute distress, well developed and alert Orientation/consciousness: patient oriented x3 HEENT Head: Yes normal to inspection, Yes normocephalic and Yes atraumatic Eyes General: appearance normal, both eyes and all related structures Resp Effort & Inspection: normal respiratory effort and able to speak in complete sentences Cardio Rate: regular rate Peripheral pulses: Peripheral pulses 2+ throughout GI Palpation (GI): Soft to palpation Skin Lesions: no lesions Rashes: no rashes Neuro General: patient oriented x3 Extrem Other: Right knee: Skin intact, no erythema or joint effusion. Mild lateral retropatellar tenderness present. Full ROM with crepitus. Negative Angel?s. No ligamentous laxity. NVI. present Assessment & Plan Assessment & Plan (1) Patellofemoral arthritis of right knee: Code(s): M17.11 - Unilateral primary osteoarthritis, right knee Plan He is doing quite well since his previous injection. He will continue to use anti-inflammatories and his brace. If he continues to have discomfort or worsening symptoms with activities, he will see me back for a steroid injection, otherwise follow-up as needed. Patient Instructions: Scribed for Kit Chadwick PA-C, by Jose R Olea medical clinic manager, on 01/08/2023 at 8:30 AM SHIVA. Kit Richmond PA-C, have personally reviewed and agree with the information entered by the scribe. Coding Level of Care Code Est Pt Level 3 (80308) Diagnoses Patellofemoral arthritis of right knee M17.11
== END 2023-01-08 09:04 | disposition home or self-care (01) ==
PROVIDERS: PCP Family Medicine; Visit Provider Physician Assistant
DX: M17.11 Unilateral primary osteoarthritis, right knee (principal)
CPT/HCPCS: 99213

== ENCOUNTER → 2023-01-08 08:12 | Outpatient (BNVA) | payer OTHER, SELFPAY | PROVIDERS: PCP Family Medicine; Visit Provider Physician Assistant | DX: M17.11 Unilateral primary osteoarthritis, right knee (principal) | CPT/HCPCS: 99212 ==

== ENCOUNTER 2023-01-24 11:01 | Outpatient (AMB) | payer OTHER, SELFPAY ==
--- NOTE | 2023-01-24 11:26 | AM.OFFWIN_ITS ---
Intake Vital Signs 01/24/23 11:27 Height 5 ft 6 in Weight 158 lb 4 oz BMI 25.5 BP 110/76 Blood Pressure Location Rt brachial Position Sitting Pulse 69 Pulse Source Pulse Oximeter Pulse Oximetry (%) 99 Oxygen Delivery Method Room Air Intake Visit Reasons: ongoing cough Intake Note: Patient is here today for ongoing cough after cold two weeks ago. Pressure in chest, difficult breathing. No fever or chills. Tested negative for covid. Patient Tobacco Use Status: Never used Tobacco Coconut Jelly Roller Required: No Marklogic Developer: Not Required per policy Accompanied by: Self / Same As Patient Allergies Penicillins Allergy (Severe, Verified 01/24/23 12:15) Rash iodine Allergy (Intermediate, Verified 01/24/23 12:15) Rash seafood Allergy (Intermediate, Verified 01/24/23 12:15) Anaphylaxis blue dye Adverse Reaction (Severe, Verified 01/24/23 12:15) Swelling Medication List - Last Reconciled 01/24/23 by Yohana Alberto, USER EXPERIENCE LEAD- albuterol sulfate 90 mcg/actuation 2 puffs inhalation QID PRN buspirone 7.5 mg PO BID dxymorpzzy-krtibfskpdocb-abgo 50-325-40 mg 1 tab PO Q6H PRN calcium carbonate (Calcium Antacid) 200 mg PO QID cyclobenzaprine 10 mg PO BEDTIME PRN 10 days epinephrine (EpiPen 2-Toan) 0.3 mg (0.3 mL) IM Q4H PRN 30 days hydroxyzine pamoate 50 mg PO BID PRN sertraline 75 mg (1.5 x 50 mg) PO DAILY 90 days Do you need a note to return to 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 ) Cognitive needs: No Hearing needs: No Vision needs: No Review of Systems Const All systems reviewed & are unremarkable except as noted in HPI and below Physical Exam Vital Signs: Last Vital Signs Pulse 69 01/24/23 11:27 BP 110/76 01/24/23 11:27 Pulse Ox 99 01/24/23 11:27 Oxygen Delivery Method Room Air 01/24/23 11:27 BMI result Body Mass Index 25.5 Const Other: awake alert NAD cerumen impaction bilat sinuses and turbinates WNL pharynx WNL LS CTAB, occassional dry cough w/o distress RRR Assessment & Plan Assessment & Plan (1) Impacted cerumen of both ears: Code(s): H61.23 - Impacted cerumen, bilateral Plan: . (2) Cough: Code(s): R05.9 - Cough, unspecified Qualifiers: Cough type: acute Qualified Code(s): R05.1 - Acute cough Plan: . Medications: New benzonatate 100 mg PO TID 10 days PRN 30 caps 1RF cough carbamide peroxide 6.5% (Debrox) 5 drps otic (ears) DAILY 5 days 15 mL 0RF BILAT EARS Refilled albuterol sulfate 90 mcg/actuation 2 puffs inhalation QID PRN 8.5 grams 1RF for wheezing J45.909 - Unspecified asthma, uncomplicated Patient Instructions: use medications as prescribed come back to office after 5 days of ear drop use to have us flush your ears out Coding Level of Care Code Est Pt Level 3 (85653) Diagnoses Impacted cerumen of both ears H61.23 Acute cough R05.1 Cough type: acute
[2023-01-24 11:27] VITALS: BP 110/76; PULSE 69; O2SAT 99; BMI 25.5
== END 2023-01-24 12:27 | disposition home or self-care (01) ==
PROVIDERS: PCP Family Medicine; Visit Provider Nurse Practitioner Family
DX: H61.23 Impacted cerumen, bilateral (principal); R05.1 Acute cough
CPT/HCPCS: 99213

== ENCOUNTER 2023-02-24 07:01 | Outpatient (REF) | payer OTHER, SELFPAY ==
[2023-02-24 08:19] LABS: Alanine Aminotransferase 29 U/L (0-40); Albumin Level 4.1 g/dL (3.5-5.0); Alkaline Phosphatase 68 U/L (39-117); Anion Gap 14 (12-20); Aspartate Amino Transferase 26 U/L (5-37); Bilirubin Total 0.4 mg/dL (0.0-1.0); Blood Urea Nitrogen 14 mg/dL (9-16); Calcium 9.3 mg/dL (8.4-10.2); Carbon Dioxide 27 mmol/L (22-29); Chloride 105 mmol/L (96-108); Cholesterol 206 mg/dL (<200); Estimated Glomerular Filt Rate > 60; Glucose Fasting 100 mg/dL (60-99); HDL Cholesterol 64 mg/dL (>40); LDL Cholesterol Calculated 129 mg/dL (<100); Potassium 4.9 mmol/L (3.3-5.1); Sodium 141 mmol/L (135-145); Total Protein 7.3 g/dL (6.5-8.0); Triglycerides 66 mg/dL (<150)
[2023-02-24 08:33] LABS: Appearance Urine Clear; Color Urine Yellow; Glucose Urine UA Negative (Negative); Leukocyte Esterase Urine Negative (Negative); Nitrite Urine Negative (Negative); PH 5.5 (5.0-9.0); Urine Blood Negative (Negative); Urine Ketones Negative (Negative); Urine Protein Negative (Neg-Trace)
[2023-02-24 09:08] LABS: Creatinine Urine 168.31 mg/dL; Microalbumin Urine < 5.0 mg/L
== END 2023-02-24 07:02 | disposition home or self-care (01) ==
LOC: HO.LAB 07:01
PROVIDERS: PCP Family Medicine; Visit Provider Family Medicine
DX: Z00.00 Encounter for general adult medical examination without abnormal findings (principal); Z12.5 Encounter for screening for malignant neoplasm of prostate; I10 Essential (primary) hypertension; Z91.013 Allergy to seafood
CPT/HCPCS: 36415; 80053; 80061; 81003; 82043; 82570; 84153

== ENCOUNTER 2023-03-01 08:32 | Outpatient (AMB) | payer OTHER, SELFPAY ==
--- NOTE | 2023-03-01 08:18 | MHC.PC.OV ---
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 Accompanied by: Self / Same As Patient Allergies Penicillins Allergy (Severe, Verified 03/01/23 08:39) Rash iodine Allergy (Intermediate, Verified 03/01/23 08:39) Rash seafood Allergy (Intermediate, Verified 03/01/23 08:39) Anaphylaxis blue dye Adverse Reaction (Severe, Verified 03/01/23 08:39) Swelling Medication List - Last Reconciled 03/01/23 by Zane Zee MD albuterol sulfate 90 mcg/actuation 2 puffs inhalation QID PRN benzonatate 100 mg PO TID PRN 10 days buspirone 7.5 mg PO BID uypezpplyr-iafqjtejcwzpk-ehtb 50-325-40 mg 1 tab PO Q6H PRN calcium carbonate (Calcium Antacid) 200 mg PO QID carbamide peroxide 6.5% (Debrox) 5 drps otic (ears) DAILY 5 days cyclobenzaprine 10 mg PO BEDTIME PRN 10 days epinephrine (EpiPen 2-Toan) 0.3 mg (0.3 mL) IM Q4H PRN 30 days hydroxyzine pamoate 50 mg PO BID PRN sertraline 75 mg (1.5 x 50 mg) PO DAILY 90 days Tobacco use date assessed: 03/01/23 Dental Screening Dental Screen Date: 03/01/23 Did you have a dental visit in the last 12 months?: No Did you have a dental problem in the last 6 months where you did not have access to dental care?: No Was dental information given to patient?: Yes HPI CPE with f/u labs and health maintenance HPI Details Patient?presents?for?complete?physical Reviewed?labs?with?patient: Mildly?elevated?fasting?blood?sugars;?100 Elevated?PSA?4.10?which?is?improved.??He?is?followed?by?Urology The?rest?of?his?labs?are?okay [facility] Medical History Hemorrhoids with complication Depression Anxiety Surgical History Hx of biopsy History of back surgery Family History Mother Epilepsy Father Cancer Brother No problems noted. 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 1. Little interest or pleasure in doing things: not at all 2. Feeling down, depressed, or hopeless: several days 3. Trouble falling or staying asleep, or sleeping too much: nearly every day 4. Feeling tired or having little energy: several days 5. Poor appetite or overeating: not at all 6. Feeling bad about yourself - or that you are a failure or have let yourself or your family down: not at all 7. Trouble concentrating on things, such as reading the newspaper or watching television: not at all 8. Moving or speaking so slowly that other people could have noticed. Or the opposite - being so fidgety or restless that you have been moving around a lot more than usual: not at all 9. Thoughts that you would be better off or of hurting yourself in some way: not at all Total score: 5 Depression Screening Interpretation: Positive Depression Screening Done: Yes 65985 - PHQ-9 Billing: Yes Source: Developed by Drs. Javier Hyatt, Annia Pepper, Keyur Ding and colleagues, with an educational jefferson from [employer]. Thrive Questionnaire Date Thrive assessed: 03/01/23 I am a: Patient What is your living situation today?: I have a steady place to live Within the past 12 months, did the food you bought not last and you didn't have the money to get more?: Never true Within the past 12 months, did you worry whether your food would run out before you got money to buy more?: Never true Do you have trouble paying for medicines?: No Do you have trouble getting transportation to medical appointments?: No Do you have trouble paying your heating and electricity bill?: No Do you have trouble taking care of your child, family member or friend?: No Do you have trouble with day-to-day activities such as bathing, preparing meals, shopping, managing finances, etc.?: No Are you currently unemployed and looking for a job?: No Are you interested in more education?: No Please select the resources that you would like help with: None Currently or been in a relationship where the following occur: no concerns reported THRIVE Score: 0 AUDIT C Alcohol Use Questionnaire (AUDIT-C) 1. How often do you have a drink containing alcohol?: Monthly or less 2. How many drinks containing alcohol do you have on a typical day when you are drinking?: 1 or 2 3. How often do you have six or more drinks on one occasion?: Never Total Score: 1 DHEERAJ-7 AMB Questionnaire DHEREAJ-7 Date DHEERAJ - 7 assessed: 03/01/23 Feeling nervous, anxious, or on edge: 1 = Several days Not being able to stop or control worryin = Several days Worrying too much about different things: 1 = Several days Trouble relaxin = Several days Being so restless that it is hard to sit still: 3 = Nearly every day Becoming easily annoyed or irritable: 0 = Not at all Feeling afraid as if something awful might happen: 0 = Not at all Total DHEERAJ-7 score (0-4 normal; 5-9 mild; 10-14 moderate; 15-21 severe): 7 Source: Developed by Drs. Javier Hyatt, Annia Pepper, Keyur Ding and colleagues, with an educational jefferson from [employer]. DHEERAJ-7 Assessment Billing DHEERAJ-7 Assessment Tool: DHEERAJ-7 Assessment 67411 ACT Questionnaire In the past 4 weeks, how much of the time did your asthma keep you from getting as much done at work, school or at home?: None of the time During the past 4 weeks, how often have you had shortness of breath?: 1-2 times a week During the past 4 weeks, how often did your asthma symptoms wake you up at night or earlier than usual in the morning?: Not at all During the past 4 weeks, how often have you had to use your rescue inhaler or nebulizer medication?: Once a week or less How would you rate your asthma control during the past 4 weeks?: Well controlled ACT Interpretation: Positive Score: 22 Review of Systems Const Denies chills, Denies fatigue, Denies fever(s), Denies headache(s) and Denies weakness Eyes Denies change in vision ENT Denies dizziness, Denies headache(s), Denies hearing loss, Denies nasal congestion, Denies sinus pain, Denies sinus pressure and Denies sore throat Card Denies chest pain, Denies lightheadedness, Denies dyspnea and Denies other (palpitations) Resp Denies cough, Denies dyspnea and Denies wheezing GI Denies abdominal pain, Denies melena, Denies hematochezia, Denies change in bowel habits, Denies dyspepsia and Denies nausea Denies hematuria and Denies dysuria Musc Denies abnormal gait, Denies myalgias, Denies arthralgias, Denies numbness and Denies tingling Skin/Breast Denies rash, Denies unusual bruising and Denies wounds Neuro Denies abnormal gait, Denies dizziness, Denies headache(s), Denies memory loss, Denies numbness, Denies Sensory deficit (Neuro), Denies tingling and Denies weakness Psych Denies anxiety, Denies depression and Denies memory loss Endo Denies cold intolerance, Denies fatigue, Denies heat intolerance, Denies polydipsia and Denies polyuria Cuco/Lymph Denies easy bleeding and Denies easy bruising Aller/Immun Denies wheezing Physical exam (Primary Care) Vital Signs: Last Vital Signs Temp 97.5 F 03/01/23 08:35 Pulse 73 03/01/23 08:35 Resp 13 03/01/23 08:35 BP 128/70 03/01/23 08:35 Pulse Ox 99 03/01/23 08:35 Oxygen Delivery Method Room Air 03/01/23 08:35 BMI result Body Mass Index 26.4 Tobacco/Smoking Status: Tobacco use Status Tobacco use date assessed 05/22/22 03/01/23 08:19 Patient Tobacco Use Status Never used Tobacco 03/01/23 08:19 e-Cigarette/Vaping Use Never Used 03/01/23 08:19 Depression Screening Interpretation: Positive Thrive Assessment: Date of Thrive Assessment Date Thrive assessed 02/27/22 03/01/23 08:19 Currently or been in a relationship where the following occur: no concerns reported Const General: no acute distress, well developed, alert and awake Nutritional Appearance: well nourished Orientation/consciousness: patient oriented x3 HENMT Head: Yes normocephalic and Yes atraumatic Ears: hearing grossly normal bilaterally and TM's normal bilaterally General nose exam: Normal external nose present and Normal nares present Mouth: Normal oral and palatal mucosa present and moist mucous membranes Teeth and gingiva: dentition normal Throat: Yes posterior oropharynx normal Eyes Pupils: Equal, round and reactive pupils present and Pupil accommodation reflex normal EOM: EOMs intact bilaterally Neck Neck: Yes normal visual inspection, Yes no lymphadenopathy and Yes trachea midline Thyroid: Thyroid normal Carotids: no bruits Lymphatic: no lymphadenopathy noted Chest Chest palpation & inspection: normal inspection of the chest Resp Effort & Inspection: normal respiratory effort Auscultation: clear to auscultation bilaterally Cardio Rate: regular rate Rhythm: regular rhythm Heart sounds: S1 normal heart sound present, S2 normal heart sound present, no gallops, no murmurs and no rubs Bruits: no abdominal aortic bruits and no carotid bruits GI Palpation (GI): No Abdominal aortic bruit present, Soft to palpation, nontender, No hepatosplenomegaly present and No Rebound tenderness present Auscultation: normal bowel sounds General: Yes no CVA tenderness Back/Spine/Pelvis Back: no CVA tenderness Cervical Spine: cervical ROM normal and No Cervical spine tenderness Thoracic/Lumbar Spine: thoraco-lumbar ROM normal, No pain with thoraco-lumbar ROM, No thoracic spinal tenderness and No lumbar spinal tenderness Skin Lesions: no lesions Rashes: no rashes Trauma: no lacerations or abrasions Wounds: no wounds Nails: normal Neuro General: patient oriented x3, gait normal and CN's II-XI intact bilaterally Cranial nerves: Yes Equal, round and reactive pupils present Cognition (Neuro): normal cognition Gait exam (Neuro): Normal gait present Motor exam (neuro): 5/5 motor strength present throughout Sensory Exam: No Sensory deficit (Neuro) Deep tendon reflexes (DTR's): Right patellar reflex intensity grade: 2+ and Left patellar reflex intensity grade: 2+ Extrem General: Yes normal to inspection and No edema Psych Appearance: grossly normal Affect: normal affect Attitude: cooperative Thought process: Normal thought process present Assessment and Plan Assessment & Plan (1) Encounter for general adult medical examination without abnormal findings: Code(s): Z00.00 - Encounter for general adult medical examination without abnormal findings Plan: 57-year-old?male?presents?for?complete?physical?exam Encouraged?healthy?diet?with?active?lifestyle?and?plenty?of?exercise (2) Elevated fasting blood sugar: Code(s): R73.01 - Impaired fasting glucose Plan: Mildly?elevated?fasting?blood?sugar Will?have?him?recheck?this?with?next?blood?draw Advised?diet?lower?in?sugars?and?starches (3) Screening for malignant neoplasm of colon: Code(s): Z12.11 - Encounter for screening for malignant neoplasm of colon Plan: Patient?had?colonoscopy?in?November?2019?and?was?told?he?could?follow-up?in?10?year Up-to-date.??Follow-up?at?[facility]?GI?in?2029 (4) Screening for prostate cancer: Code(s): Z12.5 - Encounter for screening for malignant neoplasm of prostate Plan: Mildly?elevated?PSA?level?4.10, which?was?above?6?previously He?is?followed?by?Urology?at?[facility] He?notes?some?hesitancy?and?nocturia Advised?he?follow-up?with?urology Orders: Orders Basic Metabolic Panel Fasting Today R73.01 - Impaired fasting glucose Complete Blood Count Auto Diff Today D64.9 - Anemia, unspecified, Z00.00 - Encounter for general adult medical examination without abnormal findings Coding Level of Care Code Est Pt Prev Care 40-64y(26768) Diagnoses Encounter for general adult medical examination without abnormal findings Z00.00 Elevated fasting blood sugar R73.01 Screening for malignant neoplasm of colon Z12.11 Screening for prostate cancer Z12.5 Additional Codes DHEERAJ-7 Assessment Billing - DHEERAJ-7 Assessment Tool: DHEERAJ-7 Assessment 85057 ([id number])
[2023-03-01 08:35] VITALS: BP 128/70; PULSE 73; RESP 13; TEMP 36.4; O2SAT 99; BMI 26.4
== END 2023-03-01 09:10 | disposition home or self-care (01) ==
PROVIDERS: Visit Provider Family Medicine
DX: Z00.00 Encounter for general adult medical examination without abnormal findings (principal); R73.01 Impaired fasting glucose; Z12.11 Encounter for screening for malignant neoplasm of colon; Z12.5 Encounter for screening for malignant neoplasm of prostate
CPT/HCPCS: 99396

== ENCOUNTER 2023-05-02 09:24 | Outpatient (AMB) | payer OTHER, SELFPAY ==
--- NOTE | 2023-05-02 09:53 | A.OFFVIS_ITS ---
Intake Vital Signs 05/02/23 09:56 Height 5 ft 6 in Weight 163 lb BMI 26.3 Intake Visit Reasons: OV-Right knee injection-07/24/22 Intake Note: Yo is a 58 year old male who presents today for a right knee injection, his last injection was on 07/24/22. Patient reports his last injection gave him 3 + months of relief. Allergies Penicillins Allergy (Severe, Verified 05/02/23 09:55) Rash iodine Allergy (Intermediate, Verified 05/02/23 09:55) Rash seafood Allergy (Intermediate, Verified 05/02/23 09:55) Anaphylaxis blue dye Adverse Reaction (Severe, Verified 05/02/23 09:55) Swelling HPI OV-Right knee injection-07/24/22 HPI Details 58-year-old male who returns to the [facility] today for a follow-up of right knee pain. He continues to have intermittent pain in his knee. He denies any catching or locking in his knee. He had his last injection on 07/24/22 which provided him more than 3 months of relief. He has no other concerns. [facility] Medical History Hemorrhoids with complication Depression Anxiety Surgical History Hx of biopsy History of back surgery Family History Mother Epilepsy Father Cancer Brother No problems noted. 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 ) Cognitive needs: No Hearing needs: No Vision needs: No Review of Systems Const All systems reviewed & are unremarkable except as noted in HPI and below Physical Exam Vital Signs: BMI result Body Mass Index 26.3 Const General: cooperative, healthy appearing, comfortable, no acute distress, well developed and alert Orientation/consciousness: patient oriented x3 HEENT Head: Yes normal to inspection, Yes normocephalic and Yes atraumatic Eyes General: appearance normal, both eyes and all related structures Resp Effort & Inspection: normal respiratory effort and able to speak in complete sentences Cardio Rate: regular rate Peripheral pulses: Peripheral pulses 2+ throughout GI Palpation (GI): Soft to palpation Skin Lesions: no lesions Rashes: no rashes Neuro General: patient oriented x3 Extrem Other: Right knee: Skin intact, no erythema or joint effusion. Mild lateral retropatellar tenderness present. Full ROM with crepitus. Negative Angel?s. No ligamentous laxity. NVI. present Office Procedures Joint Injection/Drain Joint Injection/Drain Primary Site: right knee Prep: site was prepped using aseptic technique, ethochloride spray was applied and injection warnings given Injected: 40 mg of, with 8 mL of, 1% plain lidocaine, in the joint and decadron Approach Used: anterolateral Procedure: The patient tolerated the procedure well and there was some relief with the local anesthesia Coding 46924 - Glenohumeral/Tronchanteric Bursa/Intraarticular Procedure code (CPT) selection complete Assessment & Plan Assessment & Plan (1) Patellofemoral arthritis of right knee: Code(s): M17.11 - Unilateral primary osteoarthritis, right knee Plan We discussed options today which include steroid injection. They did consent to move forward with the right knee injection, which was tolerated well. I recommended rest, ice and elevation and OTC anti-inflammatories PRN for discomfort. If symptoms persist or worsens over the next 6-8 weeks, patient will contact the office, otherwise follow-up as needed. Patient Instructions: Scribed for Kit Chadwick PA-C, by Jose R Olea biomedical analytical scientist, on 05/02/2023 at 9:45 AM SHIVA. Kit Richmond PA-C, have personally reviewed and agree with the information entered by the scribe. Coding Level of Care Code Est Pt Level 3 (32070) Diagnoses Patellofemoral arthritis of right knee M17.11 CPT Codes Coding - Joint 7: 36062 - Glenohumeral/Tronchanteric Bursa/Intraarticular ([id number])
[2023-05-02 09:56] VITALS: BMI 26.3
== END 2023-05-02 10:21 | disposition home or self-care (01) ==
PROVIDERS: PCP Family Medicine; Visit Provider Physician Assistant
DX: M17.11 Unilateral primary osteoarthritis, right knee (principal)
CPT/HCPCS: 20610; 99213

== ENCOUNTER → 2023-05-02 09:24 | Outpatient (BNVA) | payer OTHER, SELFPAY | PROVIDERS: PCP Family Medicine; Visit Provider Physician Assistant | DX: M17.11 Unilateral primary osteoarthritis, right knee (principal) | CPT/HCPCS: 20610; 99212; J0665; J1100 ==

== ENCOUNTER 2023-05-23 06:02 | Outpatient (REF) | payer OTHER, SELFPAY ==
[2023-05-23 07:35] LABS: Basophils Percent Auto 0.6 % (0-2); Eosinophils Absolute Auto 0.2 X10*3/uL (0.0-0.4); Eosinophils Percent Auto 3.6 % (0-4); Hematocrit 40.9 % (42.0-52.0); Hemoglobin 13.2 g/dl (14.0-18.0); Imm Gran Abs Auto 0.01 X10*3/uL (0.00-0.03); Imm Gran Pct Auto 0.1 % (0.0-0.4); Lymphocytes Percent Auto 60.6 % (20-40); MANUAL DIFF FLAG SCAN; Mean Corpuscular HGB Conc 32.3 g/dl (31.0-36.0); Mean Corpuscular Hemoglobin 27.6 pg (27.0-33.0); Mean Corpuscular Volume 85.6 fL (80.0-98.0); Mean Platelet Volume 10.7 fL (9.4-12.4); Monocytes Absolute Auto 0.8 X10*3/uL (0.1-1.2); Monocytes Percent Auto 11.8 % (2-11); Neutrophils Absolute Auto 1.6 x10*3/uL (2.0-8.3); Neutrophils Percent Auto 23.3 % (45-73); Platelet Count 190 X10*3/uL (160-400); Red Blood Count 4.78 X10*6/uL (4.60-5.80); Red Cell Distribution Width 13.1 % (11.0-16.0); SCAN SMEAR FLAG 1; White Blood Count 6.7 X10*3/uL (4.8-10.8)
[2023-05-23 08:14] LABS: Anion Gap 12 (12-20); Blood Urea Nitrogen 14 mg/dL (9-16); Carbon Dioxide 27 mmol/L (22-29); Chloride 104 mmol/L (96-108); Estimated Glomerular Filt Rate > 60; Glucose Fasting 93 mg/dL (60-99); Sodium 139 mmol/L (135-145)
[2023-05-23 09:25] LABS: SLIDE REVIEW VERIFIED
== END 2023-05-23 06:03 | disposition home or self-care (01) ==
LOC: HO.LAB 06:02
PROVIDERS: PCP Family Medicine; Visit Provider Family Medicine
DX: Z00.00 Encounter for general adult medical examination without abnormal findings (principal); R73.01 Impaired fasting glucose; D64.9 Anemia, unspecified
CPT/HCPCS: 36415; 80048; 85025

== ENCOUNTER 2023-05-24 09:06 | Outpatient (AMB) | payer OTHER, SELFPAY ==
--- NOTE | 2023-05-24 09:09 | MHC.PC.OV ---
Vital Signs 05/24/23 09:10 Height 5 ft 6 in Weight 158 lb 6 oz BMI 25.6 BP 122/70 Blood Pressure Location Lt brachial Position Sitting Pulse 73 Pulse Source Pulse Oximeter Pulse Oximetry (%) 99 Oxygen Delivery Method Room Air Intake Visit Reasons: 3 Mth follow up Intake Note: Patient is here for follow up Allergies Penicillins Allergy (Severe, Verified 05/24/23 09:34) Rash iodine Allergy (Intermediate, Verified 05/24/23 09:34) Rash seafood Allergy (Intermediate, Verified 05/24/23 09:34) Anaphylaxis blue dye Adverse Reaction (Severe, Verified 05/24/23 09:34) Swelling Medication List - Last Reconciled 05/24/23 by Zane Zee MD albuterol sulfate 90 mcg/actuation 2 puffs inhalation QID PRN benzonatate 100 mg PO TID PRN 10 days buspirone 7.5 mg PO BID xxvvzoiufe-qzryrifoujpjj-sags 50-325-40 mg 1 tab PO Q6H PRN calcium carbonate (Calcium Antacid) 200 mg PO QID carbamide peroxide 6.5% (Debrox) 5 drps otic (ears) DAILY 5 days cyclobenzaprine 10 mg PO BEDTIME PRN 10 days epinephrine (EpiPen 2-Toan) 0.3 mg (0.3 mL) IM Q4H PRN 30 days hydroxyzine pamoate 50 mg PO BID PRN sertraline 75 mg (1.5 x 50 mg) PO DAILY 90 days Tobacco use date assessed: 05/24/23 Dental Screening Dental Screen Date: 03/01/23 HPI 3 Mth follow up HPI Details 58 y/o male presents to f/u elevated fasting blood sugar and hx of anemia. A1c 05/24/23 5.6%. Labs were drawn 05/23/23. Reviewed labs with pt. Ongoing mild anemia. Patient?notes?that?his?left?elbow?and?forearm?have?been?hurting?for?about?3?weeks. He?is?tried?Tylenol?and?gentle?stretching PFSH Medical History Hemorrhoids with complication Depression Anxiety Surgical History Hx of biopsy History of back surgery Family History Mother Epilepsy Father Cancer Brother No problems noted. 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 Javier Hyatt, Annia Pepper, Keyur Ding and colleagues, with an educational jefferson from [employer]. Review of Systems Const Denies chills, Denies fatigue, Denies fever(s), Denies headache(s) and Denies weakness ENT Denies dizziness and Denies headache(s) Card Denies dyspnea Resp Denies cough, Denies dyspnea, Denies wheezing and Denies other (shortness of breath) Musc Denies numbness and Denies tingling Neuro Denies dizziness, Denies headache(s), Denies numbness, Denies tingling and Denies weakness Psych Denies anxiety and Denies depression Endo Denies fatigue Aller/Immun Denies wheezing Physical exam (Primary Care) Vital Signs: Last Vital Signs Pulse 73 05/24/23 09:10 BP 122/70 05/24/23 09:10 Pulse Ox 99 05/24/23 09:10 Oxygen Delivery Method Room Air 05/24/23 09:10 BMI result Body Mass Index 25.6 Tobacco/Smoking Status: Tobacco use Status Tobacco use date assessed 05/24/23 05/24/23 09:35 Patient Tobacco Use Status Never used Tobacco 05/24/23 09:11 e-Cigarette/Vaping Use Never Used 05/24/23 09:11 Thrive Assessment: Date of Thrive Assessment Date Thrive assessed 03/01/23 05/24/23 09:11 Const General: well developed; No acute distress Nutritional Appearance: well nourished Orientation/consciousness: patient oriented x3 HENMT Head: Yes normocephalic and Yes atraumatic Eyes General: appearance normal, both eyes and all related structures Pupils: Equal, round and reactive pupils present EOM: EOMs intact bilaterally Resp Effort & Inspection: normal respiratory effort Neuro General: patient oriented x3 and gait normal Cranial nerves: Yes Equal, round and reactive pupils present Extrem Other: Tenderness?at?lateral?epicondyle?of?left?elbow Psych Affect: normal affect Results AMB Hemoglobin A1c AMB Hemoglobin A1c 5.6 % Last Edit by Chula Hernández CMA on 05/24/23 09:34 Results Reviewed Results Reviewed: Laboratory Last Values Hgb A1c (Clinic) 5.6 % (4.0-6.0) 05/24/23 09:33 Assessment and Plan Assessment & Plan (1) Mild anemia: Code(s): D64.9 - Anemia, unspecified Plan: Very?mild?anemia?which?is?slightly?improved. Will?continue?to?follow (2) Elevated fasting blood sugar: Code(s): R73.01 - Impaired fasting glucose Plan: A1c?at?5.6%;?top?normal?range. He?has?had?some?elevated?fasting?blood?sugars?as?well?and?this?is?likely?some?insulin?resistance. Encouraged?a?diet?lower?in?sugars?and?starches. Encouraged?ongoing?weight?loss?and?exercise. (3) Left forearm pain: Code(s): M79.632 - Pain in left forearm Plan: Start?occupational?therapy Ice/heat Ibuprofen He?will?let?me?know?if?it?is?not?improving Orders: Orders AMB Hemoglobin A1c Today Z13.9 - Encounter for screening, unspecified OT Evaluation and Treatment Today M79.632 - Pain in left forearm Coding Level of Care Code Est Pt Level 3 (44862) Diagnoses Mild anemia D64.9 Elevated fasting blood sugar R73.01 Left forearm pain M79.632
[2023-05-24 09:10] VITALS: BP 122/70; PULSE 73; O2SAT 99; BMI 25.6
== END 2023-05-24 10:05 | disposition home or self-care (01) ==
PROVIDERS: PCP Family Medicine; Visit Provider Family Medicine
DX: D64.9 Anemia, unspecified (principal); R73.01 Impaired fasting glucose; M79.632 Pain in left forearm; Z13.9 Encounter for screening, unspecified
CPT/HCPCS: 83036; 99213

== ENCOUNTER 2023-07-26 08:30 | Outpatient (RCR) | payer OTHER, SELFPAY ==
--- NOTE | 2023-06-22 11:00 | MHC.OT.EP ---
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 He was seen in PCP office and has been referred to OT for further assessment of left shoulder and forearm pain. He has had difficulty over the past six weeks or so with heavier lifting and forceful use of left arm, including cooking, home care and yard work and he has been unable to return to the gym. He reports moderate pain at rest, and increases w/ daily use, also has right index PIP pain on waking that appears unrelated to currently visit and likely OA origin. Therapy assessment shows tenderness in anterior shoulder down to volar and dorsal forearm and into volar MCPs, consistent w/ strain injury and cont'd overuse of left arm. Frequency and Duration: The patient will be seen 2x/wk for 4 weeks Short Term Goals: Good follow through w/ joint protection/activity modification 2/10 resting pain in Left UE Ind w/ heat and ice modalities Snf Goals: Pain free resting LUE Progress to full strengthening program Pt to demo lift and carry >40lb w/ ease Treatment Plan: Therapeutic Exercise Therapeutic Activity Home Exercise Program Splinting Patient Education ADL Training NMES Fluidotherapy Cold Packs Joint Mobilization Soft Tissue Mobilization Kinesiotaping Consider nighttime orthosis Electronically Signed By: Nikky Wallace OTR/L CHT Please Sign and return to therapist. Thank you once again for your referral.
--- NOTE | 2023-07-26 08:56 | MHC.OT.DC ---
[address] [phone] F: [phone] Occupational Therapy Discharge Note Patient Name: Yo Broderick Provider: Zane Zee Diagnosis: Left elbow and forearm pain Date of Surgery: Date of Evaluation: 06/22/23 Date of Discharge: Treatments to Date: 10 Cancellations to Date: No Shows to Date: Discharge Status: Achieved Goals Independent with HEP Discharge Summary: Pt tolerated therapy well today. We reviewed/ discussed HEP for strengthening an continuing w/ stretching Electronically Signed By: Jessica Gutierres Reviewed/agree with student documentation: N/A Therapist: Please Sign and return to therapist, thank you for your referral.
== END 2023-07-26 08:55 | disposition home or self-care (01) ==
LOC: HO.OT 08:30
PROVIDERS: PCP Family Medicine; Visit Provider Family Medicine
DX: M79.632 Pain in left forearm (principal)
CPT/HCPCS: 97110; 97140; 97166

== ENCOUNTER 2023-08-18 07:05 | Outpatient (REF) | payer OTHER, SELFPAY ==
[2023-08-18 07:34] LABS: MANUAL DIFF FLAG NO
[2023-08-18 09:12] LABS: Basophils Percent Auto 0.7 % (0-2); Eosinophils Absolute Auto 0.2 X10*3/uL (0.0-0.4); Eosinophils Percent Auto 2.6 % (0-4); Hematocrit 42.3 % (42.0-52.0); Hemoglobin 13.6 g/dl (14.0-18.0); Imm Gran Abs Auto 0.01 X10*3/uL (0.00-0.03); Imm Gran Pct Auto 0.2 % (0.0-0.4); Lymphocytes Absolute Auto 3.2 X10*3/uL (1.2-4.9); Lymphocytes Percent Auto 55.2 % (20-40); Mean Corpuscular HGB Conc 32.2 g/dl (31.0-36.0); Mean Platelet Volume 11.3 fL (9.4-12.4); Monocytes Absolute Auto 0.5 X10*3/uL (0.1-1.2); Monocytes Percent Auto 9.1 % (2-11); Neutrophils Absolute Auto 1.9 x10*3/uL (2.0-8.3); Neutrophils Percent Auto 32.2 % (45-73); Platelet Count 191 X10*3/uL (160-400); Red Blood Count 4.86 X10*6/uL (4.60-5.80); Red Cell Distribution Width 13.4 % (11.0-16.0); White Blood Count 5.8 X10*3/uL (4.8-10.8)
[2023-08-18 10:30] LABS: Alanine Aminotransferase 20 U/L (0-40); Albumin Level 4.1 g/dL (3.5-5.0); Alkaline Phosphatase 50 U/L (39-117); Anion Gap 11 (12-20); Aspartate Amino Transferase 22 U/L (5-37); Bilirubin Total 0.8 mg/dL (0.0-1.0); Blood Urea Nitrogen 14 mg/dL (9-16); Calcium 8.8 mg/dL (8.4-10.2); Carbon Dioxide 27 mmol/L (22-29); Chloride 103 mmol/L (96-108); Estimated Glomerular Filt Rate > 60; Glucose Random 89 mg/dL (60-115); Potassium 4.3 mmol/L (3.3-5.1); Sodium 137 mmol/L (135-145); Total Protein 6.8 g/dL (6.5-8.0)
== END 2023-08-18 07:06 | disposition home or self-care (01) ==
LOC: HO.LAB 07:05
PROVIDERS: PCP Family Medicine; Visit Provider Family Medicine
DX: Z00.00 Encounter for general adult medical examination without abnormal findings (principal); D64.9 Anemia, unspecified
CPT/HCPCS: 36415; 80053; 85025

== ENCOUNTER 2023-08-20 08:26 | Outpatient (AMB) | payer OTHER, SELFPAY ==
--- NOTE | 2023-08-20 08:30 | MHC.PC.OV ---
Vital Signs 08/20/23 08:32 Height 5 ft 6 in Weight 151 lb BMI 24.4 BP 104/66 Blood Pressure Location Lt brachial Position Sitting Respiration 13 Pulse 61 Pulse Source Pulse Oximeter Pulse Oximetry (%) 99 Oxygen Delivery Method Room Air Intake Visit Reasons: 3 Month F/U HTN and chronic Conditions Intake Note: Patient is here for a 3 month follow up. Patient would like to go over labs he had drawn last week. 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 Last A1c 05/24/23 5.6%. A1c today 08/20/23 5.8%. Labs drawn 08/18/23. Reviewed labs with pt. Mild anemia, improving. Recent forearm pain. [facility] Medical History Hemorrhoids with complication Depression Anxiety Surgical History Hx of biopsy History of back surgery Family History Mother Epilepsy Father Cancer Brother No problems noted. 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 Javier Hyatt, Annia Pepper, Keyur Ding and colleagues, with an educational jefferson from [employer]. Review of Systems Const Denies chills, Denies fatigue, Denies fever(s), Denies headache(s) and Denies weakness ENT Denies dizziness and Denies headache(s) Card Denies dyspnea Resp Denies cough, Denies dyspnea, Denies wheezing and Denies other (shortness of breath) Musc Denies numbness and Denies tingling Neuro Denies dizziness, Denies headache(s), Denies numbness, Denies tingling and Denies weakness Psych Denies anxiety and Denies depression Endo Denies fatigue Aller/Immun Denies wheezing Physical exam (Primary Care) Vital Signs: Last Vital Signs Pulse 61 08/20/23 08:32 Resp 13 08/20/23 08:32 BP 104/66 08/20/23 08:32 Pulse Ox 99 08/20/23 08:32 Oxygen Delivery Method Room Air 08/20/23 08:32 BMI result Body Mass Index 24.4 Tobacco/Smoking Status: Tobacco use Status Tobacco use date assessed 05/24/23 08/20/23 08:30 Patient Tobacco Use Status Never used Tobacco 08/20/23 08:30 e-Cigarette/Vaping Use Never Used 08/20/23 08:30 Thrive Assessment: Date of Thrive Assessment Date Thrive assessed 03/01/23 08/20/23 08:30 Const General: well developed; No acute distress Nutritional Appearance: well nourished Orientation/consciousness: patient oriented x3 [facility] Head: Yes normocephalic and Yes atraumatic Eyes General: appearance normal, both eyes and all related structures Pupils: Equal, round and reactive pupils present EOM: EOMs intact bilaterally Resp Effort & Inspection: normal respiratory effort Neuro General: patient oriented x3 and gait normal Cranial nerves: Yes Equal, round and reactive pupils present Psych Affect: normal affect Results AMB Hemoglobin A1c AMB Hemoglobin A1c 5.8 % Last Edit by Chula Hernández CMA on 08/20/23 09:06 Assessment and Plan Assessment & Plan (1) Pre-diabetes: Code(s): R73.03 - Prediabetes Plan: A1c?has?climbed?further?and?now?in?pre?diabetes?range. Encouraged?diet?low?in?sugars?and?starches, exercise?and?weight?loss. Will?continue?to?follow?and?recheck?in?3?months (2) Mild anemia: Code(s): D64.9 - Anemia, unspecified Plan: Further?improved?and?nearly?in?normal?range. Will?continue?to?monitor (3) Left forearm pain: Code(s): M79.632 - Pain in left forearm Plan: This?resolved?with?occupational?therapy (4) Elevated LDL cholesterol level: Code(s): E78.00 - Pure hypercholesterolemia, unspecified Plan: Recheck?lipids?at?next?visit Encouraged?diet?lower?in?saturated?fats?and?cholesterol (5) Stiffness of right hand, not elsewhere classified: Code(s): M25.641 - Stiffness of right hand, not elsewhere classified Plan: Has?tried?a?brace?on?his?hand?and?also?NSAIDs Will?check?an?x-ray?and?refer?him?to?the?hand?specialist (6) Memory changes: Code(s): R41.3 - Other amnesia Plan: Poor?sleep?of?only?5-6?hours?per?night Patient?notes?he?wakes?up?gasping/holding?breath Referred?to?Sleep?Medicine (7) Sleep disorder, unspecified: Code(s): G47.9 - Sleep disorder, unspecified Plan: As?above,?refer?to?Sleep?Medicine Orders: Orders AMB Hemoglobin A1c Today Z13.9 - Encounter for screening, unspecified Lipid Panel Today E78.00 - Pure hypercholesterolemia, unspecified, Z00.00 - Encounter for general adult medical examination without abnormal findings XR hand RT min 3V Today M25.641 - Stiffness of right hand, not elsewhere classified Comprehensive [place]. Panel Fast Today E78.00 - Pure hypercholesterolemia, unspecified, Z00.00 - Encounter for general adult medical examination without abnormal findings Complete Blood Count Auto Diff Today D64.9 - Anemia, unspecified, Z00.00 - Encounter for general adult medical examination without abnormal findings Referrals Sleep Medicine Referral G47.30 - Sleep apnea, unspecified, R41.3 - Other amnesia Coding Level of Care Code Est Pt Level 4 (41995) Diagnoses Pre-diabetes R73.03 Mild anemia D64.9 Left forearm pain M79.632 Elevated LDL cholesterol level E78.00 Stiffness of right hand, not elsewhere classified M25.641 Memory changes R41.3 Sleep disorder, unspecified G47.9
[2023-08-20 08:32] VITALS: BP 104/66; PULSE 61; RESP 13; O2SAT 99; BMI 24.4
== END 2023-08-20 09:24 | disposition home or self-care (01) ==
PROVIDERS: PCP Family Medicine; Visit Provider Family Medicine
DX: R73.03 Prediabetes (principal); D64.9 Anemia, unspecified; M79.632 Pain in left forearm; E78.00 Pure hypercholesterolemia, unspecified; M25.641 Stiffness of right hand, not elsewhere classified; R41.3 Other amnesia; G47.9 Sleep disorder, unspecified
CPT/HCPCS: 83036; 99214

== ENCOUNTER 2023-08-20 09:50 | Outpatient (REF) | payer OTHER, SELFPAY ==
--- NOTE | ~2023-08-20 | XR_ITS ---
EXAMINATION: XR HAND, RIGHT CLINICAL INFORMATION: Stiffness in the right hand. COMPARISON: None available. TECHNIQUE: PA, lateral, and oblique views of the right hand. FINDINGS: Mild multifocal osteoarthritis in the hand is most notable at the index and long finger MCP joints with small marginal osteophytes. No joint space narrowing. Bone mineralization is normal. No erosions. No fracture or malalignment. XR/XR hand RT min 3V IMPRESSION: Mild multifocal osteoarthritis in the right hand, most notably at the index and long finger MCP joints.
== END 2023-08-20 09:51 | disposition home or self-care (01) ==
LOC: HO.XRAY 09:50
PROVIDERS: PCP Family Medicine; Visit Provider Family Medicine
DX: M25.641 Stiffness of right hand, not elsewhere classified (principal)
CPT/HCPCS: 73130

== ENCOUNTER 2023-08-24 13:00 | Outpatient (AMB) | payer OTHER, SELFPAY ==
--- NOTE | 2023-08-24 13:27 | A.OFFVIS_ITS ---
Vital Signs 08/24/23 13:36 Height 5 ft 6 in Weight 151 lb BMI 24.4 BP 106/82 Blood Pressure Location Rt brachial Position Sitting Pulse 60 Pulse Source Pulse Oximeter Pulse Oximetry (%) 99 Oxygen Delivery Method Room Air Intake Visit Reasons: INP: CHRISTOPHER Intake Note: is here for evaluation for sleep apnea wakes up gasping for air and not sleeping at night. Allergies Penicillins Allergy (Severe, Verified 08/24/23 13:35) Rash iodine Allergy (Intermediate, Verified 08/24/23 13:35) Rash seafood Allergy (Intermediate, Verified 08/24/23 13:35) Anaphylaxis blue dye Adverse Reaction (Severe, Verified 08/24/23 13:35) Swelling Medication List - Last Reconciled 08/24/23 by YANETH Richardson albuterol sulfate 90 mcg/actuation 2 puffs inhalation QID PRN benzonatate 100 mg PO TID PRN 10 days buspirone 7.5 mg PO BID [id number]-[id number]-[id number] 50-325-40 mg 1 tab PO Q6H PRN calcium carbonate (Calcium Antacid) 200 mg PO QID carbamide peroxide 6.5% (Debrox) 5 drps otic (ears) DAILY 5 days cyclobenzaprine 10 mg PO BEDTIME PRN 10 days epinephrine (EpiPen 2-Toan) 0.3 mg (0.3 mL) IM Q4H PRN 30 days hydroxyzine pamoate 50 mg PO BID PRN sertraline 75 mg (1.5 x 50 mg) PO DAILY 90 days HPI Comments Details: 58-yr-old male presents for f/u of sleep difficulties. Patient was last seen in our office in 2021 by Vasiliy Payan NP. He never had the home sleep study that was previously ordered. Patient reports he is still having sleep difficulties. He can fall asleep, maybe sleeps 4 hours, and then wakes up and and cannot go back to sleep easily. Sometimes then takes a chamomile tea, which can help to relax him. He can be tired during the day, but is often busy and active. Usually does not sit down until later in the day, around 7pm. Can feel tired, but denies dozing off. Usual bedtime is 9-9:30pm, the latest 10pm. He initially sleeps soundly for about 4 hours and then has more restless sleep. Can have some nocturnal ruminating thoughts. He does also have snoring and occasional gasping arousals. As well as tossing/turning. Occasionally right inner foot cramp. May talk in his sleep. He has muscle tightness. Cyclobenzaprine has been helpful in the past, may help him sleep as well. Wakes up to void (usually about twice a night). Usual wake-up time is 6-6:30am. He wakes up energized. Avoids caffeine after 7am. He is generally active throughout the day. He exercises regularly- goes to the gym 3-4 days a week, walks, has a bike, and is generally active. Does stretch and do hot/cold showers. [facility] Medical History Hemorrhoids with complication Depression Anxiety Surgical History Hx of biopsy History of back surgery Family History Mother Epilepsy Father Cancer Brother No problems noted. 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 ) Cognitive needs: No Hearing needs: No Vision needs: No Physical Exam Vital Signs: Last Vital Signs Pulse 60 08/24/23 13:36 BP 106/82 08/24/23 13:36 Pulse Ox 99 08/24/23 13:36 Oxygen Delivery Method Room Air 08/24/23 13:36 BMI result Body Mass Index 24.4 Const General: no acute distress Orientation/consciousness: patient oriented x3 HEENT Other: Mallampati stage 4 Resp Effort & Inspection: normal respiratory effort and able to speak in complete sentences Cardio Rate: regular rate Rhythm: regular rhythm Neuro General: patient oriented x3 Psych Mental Status: mental status grossly normal Speech and movement: Clear speech present Attitude: cooperative Assessment & Plan Assessment & Plan (1) Snoring: Code(s): R06.83 - Snoring Category: Medical (2) Sleep difficulties: Code(s): G47.9 - Sleep disorder, unspecified Category: Medical (3) Gasping for breath: Comment: nocturnal Code(s): R06.89 - Other abnormalities of breathing Category: Medical (4) Muscle spasm: Code(s): M62.838 - Other muscle spasm Category: Medical Plan Patient is advised to undergo home sleep study to assess for sleep apnea. Reviewed core concepts of sleep hygiene: Most people require proximally 7 hours of sleep per night, although this can vary some. Encouraged patient to continue regular physical activity. Information shared with patient to optimize his sleep hygiene, which currently is overall very good, however he may benefit from adopting new techniques to promote late date relaxation and minimize nocturnal rumination. Refill cyclobenzaprine 10 mg patient may use q.h.s. p.r.n. muscle spasm. Follow-up in 6 months or sooner as needed. Orders: Orders RT home sleep study Today G47.9 - Sleep disorder, unspecified, R06.83 - Snoring, R06.89 - Other abnormalities of breathing Medications: Changed From cyclobenzaprine 10 mg PO BEDTIME 10 days PRN 10 tabs 0RF muscle spasm S39.012A - Strain of muscle, fascia and tendon of lower back, initial encounter To cyclobenzaprine 10 mg PO BEDTIME 30 days PRN 30 tabs 3RF muscle spasm S39.012A - Strain of muscle, fascia and tendon of lower back, initial encounter Refilled cyclobenzaprine 10 mg PO BEDTIME 30 days PRN 30 tabs 3RF muscle spasm S39.012A - Strain of muscle, fascia and tendon of lower back, initial encounter Scribe Plan - Not visible on output: Pt is advised to undergo sleep study to assess for sleep apnea: Will f/u with pt after study to discuss results and appropriate treatment options. Pt to call with any worsening concerns or questions. Coding Level of Care Code Est Pt Level 4 (70780) Diagnoses Snoring R06.83 Sleep difficulties G47.9 Gasping for breath R06.89 Muscle spasm M62.838 [place] Sleepiness Scale Questions Sitting and reading: slight chance of dozing Watching TV: slight chance of dozing Sitting inactive in a theater, movie etc.: would never doze As a passenger in a car for an hour without break: would never doze Lying down in the afternoon when circumstances permit: slight chance of dozing Sitting and talking to someone: would never doze Sitting quietly after lunch without alcohol: slight chance of dozing In a car, while stopped for a few minutes in the traffic: would never doze ESS < 10: normal, ESS > 12: pathologic: 4
[2023-08-24 13:36] VITALS: BP 106/82; PULSE 60; O2SAT 99; BMI 24.4
== END 2023-08-24 14:40 | disposition home or self-care (01) ==
PROVIDERS: PCP Family Medicine; Visit Provider Nurse Practitioner Family
DX: R06.83 Snoring (principal); G47.9 Sleep disorder, unspecified; R06.89 Other abnormalities of breathing; M62.838 Other muscle spasm
CPT/HCPCS: 99214

== ENCOUNTER → 2023-08-24 13:00 | Outpatient (BNVA) | payer OTHER, SELFPAY | PROVIDERS: PCP Family Medicine; Visit Provider Nurse Practitioner Family | DX: G47.33 Obstructive sleep apnea (adult) (pediatric) (principal); R06.83 Snoring; R06.89 Other abnormalities of breathing; M62.838 Other muscle spasm | CPT/HCPCS: 99212 ==

== ENCOUNTER 2023-09-26 11:12 | Outpatient (AMB) | payer OTHER, SELFPAY ==
--- NOTE | 2023-09-26 11:19 | MHC.PC.OV ---
Vital Signs 09/26/23 11:22 Height 5 ft 6 in Weight 150 lb 8 oz BMI 24.3 BP 90/60 Blood Pressure Location Rt brachial Position Sitting Respiration 12 Pulse 69 Pulse Source Pulse Oximeter Temp 97.5 F Temp Source Tympanic Pulse Oximetry (%) 100 Oxygen Delivery Method Room Air Intake Visit Reasons: follow up on hand xray Intake Note: rt hand x-ray f/u Allergies Penicillins Allergy (Severe, Verified 09/26/23 11:20) Rash iodine Allergy (Intermediate, Verified 09/26/23 11:20) Rash seafood Allergy (Intermediate, Verified 09/26/23 11:20) Anaphylaxis blue dye Adverse Reaction (Severe, Verified 09/26/23 11:20) Swelling Tobacco use date assessed: 05/24/23 Dental Screening Dental Screen Date: 03/01/23 HPI follow up on hand xray HPI Details 58 y/o male presents to f/u hand x-ray, chronic conditions. Last A1c 08/20/23 5.8%. Hand x-ray 08/20/23 shows mild multifocal osteoarthritis in the R hand, most notably at the index and long finger MCP joints. Pt reports ongoing stiffness/swelling. Pt reports dyspnea and feels that he needs to breathe deep to get the air he needs. Denies any chest pain. No recent chest x-ray. O2 sat today 100. HPI Comments History of Present Illness Details Documentation assistance for Zane Zee MD, was provided by Yo Pedro, Lead Pony Rider on 09/26/2023 at 12:15 PM EST. I, Dr. Zee, have read, observed, and verified documentation. [facility] Medical History Hemorrhoids with complication Depression Anxiety Surgical History Hx of biopsy History of back surgery Family History Mother Epilepsy Father Cancer Brother No problems noted. 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 Javier Hyatt, Annia Pepper, Keyur Ding and colleagues, with an educational jefferson from [employer]. Review of Systems Const Denies chills, Denies fatigue, Denies fever(s), Denies headache(s) and Denies weakness ENT Denies dizziness and Denies headache(s) Card Denies dyspnea Resp Denies cough, Denies dyspnea, Denies wheezing and Denies other (shortness of breath) Musc Denies numbness and Denies tingling Neuro Denies dizziness, Denies headache(s), Denies numbness, Denies tingling and Denies weakness Psych Denies anxiety and Denies depression Endo Denies fatigue Aller/Immun Denies wheezing Physical exam (Primary Care) Vital Signs: Last Vital Signs Temp 97.5 F 09/26/23 11:22 Pulse 69 09/26/23 11:22 Resp 12 09/26/23 11:22 BP 90/60 09/26/23 11:22 Pulse Ox 100 09/26/23 11:22 Oxygen Delivery Method Room Air 09/26/23 11:22 BMI result Body Mass Index 24.3 Tobacco/Smoking Status: Tobacco use Status Tobacco use date assessed 05/24/23 09/26/23 11:24 Patient Tobacco Use Status Never used Tobacco 09/26/23 11:24 e-Cigarette/Vaping Use Never Used 09/26/23 11:24 Thrive Assessment: Date of Thrive Assessment Date Thrive assessed 03/01/23 09/26/23 11:24 Const General: well developed; No acute distress Nutritional Appearance: well nourished Orientation/consciousness: patient oriented x3 HENMT Head: Yes normocephalic and Yes atraumatic Eyes General: appearance normal, both eyes and all related structures Pupils: Equal, round and reactive pupils present EOM: EOMs intact bilaterally Resp Effort & Inspection: normal respiratory effort Auscultation: clear to auscultation bilaterally Cardio Rate: regular rate Rhythm: regular rhythm Heart sounds: S1 normal heart sound present, S2 normal heart sound present, no gallops, no murmurs and no rubs Neuro General: patient oriented x3 and gait normal Cranial nerves: Yes Equal, round and reactive pupils present Psych Affect: normal affect Assessment and Plan Assessment & Plan (1) Stiffness of right hand, not elsewhere classified: Code(s): M25.641 - Stiffness of right hand, not elsewhere classified Plan: Bilateral?hand?stiffness?right?hand?worse?than?left X-ray?shows?arthritis?and?he?likely?also?has?some?tendinitis Benefited?from?occupational?therapy?but?still?has?symptoms. Will?give?him?a?script?for?naproxen?b.i.d. Should?also?use?ice/heat.??Continue?exercises?learned?in?OT If?worsening?or?not?improving?he?can?let?me?know?and?I?will?refer?him?to?the?hand?surgeon?for?consideration?of?steroid?injections?or?other?treatments. (2) Dyspnea: Code(s): R06.00 - Dyspnea, unspecified Plan: Patient?notes?shortness?of?breath?or?dyspnea?without?chest?pain. Heart?rate?and?oxygen?saturation?are?normal Heart?and?lung?auscultation?are?normal EKG: ?Sinus?bradycardia,?normal?axis,?no?hypertrophy,?no?ST-T-wave?changes. Will?check?chest?x-ray?and?lab?work?including?D-dimer Will?follow-up?after?lab?work?and?chest?x-ray?are?complete Orders: Orders D Dimer High Sensitivity Today R06.00 - Dyspnea, unspecified XR chest 2V Today R06.00 - Dyspnea, unspecified AMB EKG-In Office Today R06.00 - Dyspnea, unspecified B Type Natriuretic Peptide Today I50.9 - Heart failure, unspecified, R06.00 - Dyspnea, unspecified Medications: New naproxen 500 mg PO BID 90 days 180 tabs 3RF Coding Level of Care Code Est Pt Level 3 (47956) Diagnoses Stiffness of right hand, not elsewhere classified M25.641 Dyspnea R06.00
[2023-09-26 11:22] VITALS: BP 90/60; PULSE 69; RESP 12; TEMP 36.4; O2SAT 100; BMI 24.3
== END 2023-09-26 12:47 | disposition home or self-care (01) ==
PROVIDERS: PCP Family Medicine; Visit Provider Family Medicine
DX: M25.641 Stiffness of right hand, not elsewhere classified (principal); R06.00 Dyspnea, unspecified
CPT/HCPCS: 99213

== ENCOUNTER → 2023-10-22 09:32 | Outpatient (REF) | payer OTHER, SELFPAY | LOC: HO.SL 09:32 | PROVIDERS: PCP Family Medicine; Visit Provider Nurse Practitioner Family | DX: R06.83 Snoring (principal); G47.9 Sleep disorder, unspecified; R06.89 Other abnormalities of breathing | CPT/HCPCS: 95806 ==

== ENCOUNTER → 2023-10-22 09:47 | Outpatient (BNV) | payer OTHER, SELFPAY | PROVIDERS: PCP Family Medicine; Visit Provider Psychiatry & Neurology Neurology | DX: R06.83 Snoring (principal); G47.10 Hypersomnia, unspecified | CPT/HCPCS: 95806 ==

== ENCOUNTER 2023-11-24 07:03 | Outpatient (REF) | payer OTHER, SELFPAY ==
--- NOTE | ~2023-11-24 | XR_ITS ---
EXAMINATION: XR CHEST CLINICAL INFORMATION: Dyspnea unspecified COMPARISON: 04/01/2020 TECHNIQUE: 2 views of the chest were obtained. FINDINGS: There is no gross pneumothorax. No pleural effusion. No focal consolidation. Multilevel degenerative changes in the thoracic spine. Heart size is normal. XR/XR chest 2V IMPRESSION: No evidence of pneumonia. Electronically signed by: Yolanda Pickard MD 11/28/2023 12:35 PM EDT
[2023-11-24 07:30] LABS: MANUAL DIFF FLAG NO
[2023-11-24 08:00] LABS: Basophils Absolute Auto 0.1 X10*3/uL (0.0-0.2); Basophils Percent Auto 1.1 % (0-2); Eosinophils Absolute Auto 0.3 X10*3/uL (0.0-0.4); Eosinophils Percent Auto 5.2 % (0-4); Hematocrit 43.1 % (42.0-52.0); Hemoglobin 13.7 g/dl (14.0-18.0); Imm Gran Abs Auto 0.01 X10*3/uL (0.00-0.03); Imm Gran Pct Auto 0.2 % (0.0-0.4); Lymphocytes Absolute Auto 2.9 X10*3/uL (1.2-4.9); Lymphocytes Percent Auto 51.7 % (20-40); Mean Corpuscular HGB Conc 31.8 g/dl (31.0-36.0); Mean Corpuscular Hemoglobin 27.8 pg (27.0-33.0); Mean Corpuscular Volume 87.4 fL (80.0-98.0); Mean Platelet Volume 10.6 fL (9.4-12.4); Monocytes Absolute Auto 0.5 X10*3/uL (0.1-1.2); Monocytes Percent Auto 9.8 % (2-11); Neutrophils Absolute Auto 1.8 x10*3/uL (2.0-8.3); Platelet Count 206 X10*3/uL (160-400); Red Blood Count 4.93 X10*6/uL (4.60-5.80); Red Cell Distribution Width 13.2 % (11.0-16.0); White Blood Count 5.5 X10*3/uL (4.8-10.8)
[2023-11-24 08:07] LABS: D Dimer High Sensitivity < 150 NG/ML
[2023-11-24 08:19] LABS: B Type Natriuretic Peptide < 10 pg/mL (<100)
[2023-11-24 08:41] LABS: Alanine Aminotransferase 24 U/L (0-40); Albumin Level 3.9 g/dL (3.5-5.0); Alkaline Phosphatase 60 U/L (39-117); Anion Gap 11 (12-20); Aspartate Amino Transferase 27 U/L (5-37); Bilirubin Total 0.5 mg/dL (0.0-1.0); Blood Urea Nitrogen 19 mg/dL (9-16); Calcium 8.6 mg/dL (8.4-10.2); Carbon Dioxide 28 mmol/L (22-29); Chloride 104 mmol/L (96-108); Cholesterol 185 mg/dL (<200); Estimated Glomerular Filt Rate > 60; Glucose Fasting 102 mg/dL (60-99); HDL Cholesterol 60 mg/dL (>40); LDL Cholesterol Calculated 115 mg/dL (<100); Sodium 138 mmol/L (135-145); Total Protein 6.6 g/dL (6.5-8.0); Triglycerides 52 mg/dL (<150)
[2023-11-24 08:55] LABS: PSA,Total (Free>4and<10) 3.21 ng/mL (0.00-4.00)
== END 2023-11-24 07:04 | disposition home or self-care (01) ==
LOC: HO.XRAY 07:03
PROVIDERS: Urology; PCP Family Medicine; Visit Provider Family Medicine
DX: Z00.00 Encounter for general adult medical examination without abnormal findings (principal); R97.20 Elevated prostate specific antigen [PSA]; E78.00 Pure hypercholesterolemia, unspecified; D64.9 Anemia, unspecified; R06.00 Dyspnea, unspecified; I50.9 Heart failure, unspecified; Z12.5 Encounter for screening for malignant neoplasm of prostate
CPT/HCPCS: 36415; 71046; 80053; 80061; 83880; 84153; 85025; 85379

== ENCOUNTER 2023-11-26 10:16 | Outpatient (AMB) | payer OTHER, SELFPAY ==
--- NOTE | 2023-11-26 10:17 | A.OFFPC_ITS ---
Vital Signs 11/26/23 10:27 Height 5 ft 6 in Weight 150 lb 4 oz BMI 24.2 BP 104/55 L Blood Pressure Location Lt brachial Position Sitting Respiration 16 Pulse 76 Pulse Source Pulse Oximeter Temp 97.3 F Temp Source Temporal Artery Scan Pulse Oximetry (%) 98 Oxygen Delivery Method Room Air Intake Visit Reasons: F/U PRE-DIABETES/ CHRONIC CONDITIONS Intake Note: F/U DM chronic conditions Allergies Penicillins Allergy (Severe, Verified 11/26/23 10:25) Rash iodine Allergy (Intermediate, Verified 11/26/23 10:25) Rash seafood Allergy (Intermediate, Verified 11/26/23 10:25) Anaphylaxis blue dye Adverse Reaction (Severe, Verified 11/26/23 10:25) Swelling Medication List - Last Reconciled 11/26/23 by Zane Zee MD albuterol sulfate 90 mcg/actuation 2 puffs inhalation QID PRN benzonatate 100 mg PO TID PRN 10 days buspirone 7.5 mg PO BID xwfmnzlaie-jxboqhxpqceyd-mqbt 50-325-40 mg 1 tab PO Q6H PRN calcium carbonate (Calcium Antacid) 200 mg PO QID cyclobenzaprine 10 mg PO BEDTIME PRN 30 days epinephrine (EpiPen 2-Toan) 0.3 mg (0.3 mL) IM Q4H PRN 30 days hydroxyzine pamoate 50 mg PO BID PRN naproxen 500 mg PO BID 90 days sertraline 75 mg (1.5 x 50 mg) PO DAILY 90 days Tobacco use date assessed: 05/24/23 Dental Screening Dental Screen Date: 03/01/23 HPI F/U PRE-DIABETES/ CHRONIC CONDITIONS HPI Details 58 y/o male presents to f/u pre-diabetes , chronic conditions. Also had complaints of dyspnea last office visit in September. Last A1c 08/20/23 5.8%. A1c today 11/26/23 is 5.7%. Chest x-ray does not seem to have been read yet. Was done 11/24/23. PFSH Medical History Hemorrhoids with complication Depression Anxiety Surgical History Hx of biopsy History of back surgery Family History Mother Epilepsy Father Cancer Brother No problems noted. 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 1. Little interest or pleasure in doing things: not at all 3. Trouble falling or staying asleep, or sleeping too much: nearly every day 4. Feeling tired or having little energy: not at all 5. Poor appetite or overeating: not at all 6. Feeling bad about yourself - or that you are a failure or have let yourself or your family down: not at all 7. Trouble concentrating on things, such as reading the newspaper or watching television: not at all 8. Moving or speaking so slowly that other people could have noticed. Or the opposite - being so fidgety or restless that you have been moving around a lot more than usual: not at all 9. Thoughts that you would be better off or of hurting yourself in some way: not at all Source: Developed by Drs. Javier Hyatt, Annia Pepper, Keyur Ding and colleagues, with an educational jefferson from [employer]. Thrive Questionnaire Date Thrive assessed: 03/01/23 I am a: Patient What is your living situation today?: I have a steady place to live Within the past 12 months, did the food you bought not last and you didn't have the money to get more?: Never true Within the past 12 months, did you worry whether your food would run out before you got money to buy more?: Never true Do you have trouble paying for medicines?: No Do you have trouble getting transportation to medical appointments?: No Do you have trouble paying your heating and electricity bill?: Yes Do you have trouble taking care of your child, family member or friend?: No Do you have trouble with day-to-day activities such as bathing, preparing meals, shopping, managing finances, etc.?: I choose not to answer this question Are you currently unemployed and looking for a job?: No Are you interested in more education?: No Please select the resources that you would like help with: None Currently or been in a relationship where the following occur: No concerns reported THRIVE Score: 1 AUDIT C Alcohol Use Questionnaire (AUDIT-C) 1. How often do you have a drink containing alcohol?: Never Total Score: 0 DHEERAJ-7 AMB Questionnaire DHEERAJ-7 Date DHEERAJ - 7 assessed: 03/01/23 Feeling nervous, anxious, or on edge: 0 = Not at all Not being able to stop or control worryin = Not at all Worrying too much about different things: 0 = Not at all Trouble relaxin = Nearly every day Being so restless that it is hard to sit still: 3 = Nearly every day Becoming easily annoyed or irritable: 0 = Not at all Feeling afraid as if something awful might happen: 0 = Not at all Total DHEERAJ-7 score (0-4 normal; 5-9 mild; 10-14 moderate; 15-21 severe): 6 Source: Developed by Drs. Javier Hyatt, Annia Pepper, Keyur Ding and colleagues, with an educational jefferson from [employer]. Review of Systems Const Denies chills, Denies fatigue, Denies fever(s), Denies headache(s) and Denies weakness ENT Denies dizziness and Denies headache(s) Card Denies dyspnea Resp Denies cough, Denies dyspnea, Denies wheezing and Denies other (shortness of breath) Musc Denies numbness and Denies tingling Neuro Denies dizziness, Denies headache(s), Denies numbness, Denies tingling and Denies weakness Psych Denies anxiety and Denies depression Endo Denies fatigue Aller/Immun Denies wheezing Physical exam (Primary Care) Vital Signs: Last Vital Signs Temp 97.3 F 11/26/23 10:27 Pulse 76 11/26/23 10:27 Resp 16 11/26/23 10:27 BP 104/55 L 10/21/24 10:27 Pulse Ox 98 11/26/23 10:27 Oxygen Delivery Method Room Air 11/26/23 10:27 BMI result Body Mass Index 24.2 Tobacco/Smoking Status: Tobacco use Status Tobacco use date assessed 05/24/23 11/26/23 10:19 Patient Tobacco Use Status Never used Tobacco 11/26/23 10:19 e-Cigarette/Vaping Use Never Used 11/26/23 10:19 Thrive Assessment: Date of Thrive Assessment Date Thrive assessed 03/01/23 11/26/23 10:19 Currently or been in a relationship where the following occur: No concerns reported Const General: well developed; No acute distress Nutritional Appearance: well nourished Orientation/consciousness: patient oriented x3 HENMT Head: Yes normocephalic and Yes atraumatic Eyes General: appearance normal, both eyes and all related structures Pupils: Equal, round and reactive pupils present EOM: EOMs intact bilaterally Resp Effort & Inspection: normal respiratory effort Neuro General: patient oriented x3 and gait normal Cranial nerves: Yes Equal, round and reactive pupils present Psych Affect: normal affect Results AMB Hemoglobin A1c AMB Hemoglobin A1c 5.7 % Last Edit by SWETA Cole on 11/26/23 10:49 Coding Level of Care Code Est Pt Level 3 (24833) Diagnoses Pre-diabetes R73.03 Dyspnea R06.00 Assessment & Plan Assessment & Plan (1) Pre-diabetes: Code(s): R73.03 - Prediabetes Category: Medical Plan: A1c?improved?from?5.8%?to?5.7%. Low?pre?diabetes?range Encouraged?ongoing?diet?low?in?sugars?and?starches.??Encouraged?weight?loss?and? exercise. (2) Dyspnea: Code(s): R06.00 - Dyspnea, unspecified Category: Medical Plan: Patient?is?exercising?frequently. No?chest?pain.??Still ?notes?some?shortness?of?breath?or?dyspnea?exertion.??EKG?was?negative. Chest?x-ray?was?acquired?but?is?still?pending?reading. D-dimer?was?negative. Will?follow-up?on?chest?x-ray. May?need?referral?to?pulmonology Orders: Orders AMB Hemoglobin A1c Today R73.03 - Prediabetes
[2023-11-26 10:27] VITALS: BP 104/55; PULSE 76; RESP 16; TEMP 36.3; O2SAT 98; BMI 24.2
== END 2023-11-26 11:02 | disposition home or self-care (01) ==
PROVIDERS: PCP Family Medicine; Visit Provider Family Medicine
DX: R73.03 Prediabetes (principal); R06.00 Dyspnea, unspecified

== ENCOUNTER → 2023-11-26 10:16 | Outpatient (BNVA) | payer OTHER, SELFPAY | PROVIDERS: PCP Family Medicine; Visit Provider Family Medicine | DX: R73.03 Prediabetes (principal); R06.00 Dyspnea, unspecified | CPT/HCPCS: 83036; 99212 ==

== ENCOUNTER 2023-12-21 10:19 | Outpatient (AMB) | payer OTHER, SELFPAY ==
--- NOTE | 2023-12-21 10:57 | A.OFFVIS_ITS ---
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 Required: No Accompanied by: Self / Same As Patient Allergies Penicillins Allergy (Severe, Verified 12/21/23 10:58) Rash iodine Allergy (Intermediate, Verified 12/21/23 10:58) Rash seafood Allergy (Intermediate, Verified 12/21/23 10:58) Anaphylaxis blue dye Adverse Reaction (Severe, Verified 12/21/23 10:58) Swelling Medication List - Last Reconciled 12/21/23 by Ranjit Prajapati MD albuterol sulfate 90 mcg/actuation 2 puffs inhalation QID PRN alfuzosin ER 10 mg PO BEDTIME 30 days benzonatate 100 mg PO TID PRN 10 days buspirone 7.5 mg PO BID qqenwlbjif-mmzfceymzjcpa-kzdy 50-325-40 mg 1 tab PO Q6H PRN calcium carbonate (Calcium Antacid) 200 mg PO QID cyclobenzaprine 10 mg PO BEDTIME PRN 30 days epinephrine (EpiPen 2-Toan) 0.3 mg (0.3 mL) IM Q4H PRN 30 days hydroxyzine pamoate 50 mg PO BID PRN loratadine 10 mg PO DAILY naproxen 500 mg PO BID 90 days sertraline 75 mg (1.5 x 50 mg) PO DAILY 90 days HPI Comments Details: Yo is a pleasant male. He is a patient Dr. Zee. He is seen for the following urologic conditions - elevated PSA - lower urinary tract symptoms - prostatitis Yearly follow-up PSA well controlled Nocturia ranges from 2-4x - untreated sleep apnea Unable to tolerate tadalafil secondary to back pain Now with weakness of stream Recommend trial of alfuzosin. Did not tolerate prior terazosin on tamsulosin. Bladder ultrasound for sizing prostate Did ask about prostate artery embolization. Inform patient that this procedure is only been indicated for greater than 100 g prostate Lower urinary tract symptoms Had been seen with his PCP Referred for urgency and frequency Current therapy oxybutynin Prior therapy terazosin and tamsulosin not tolerated - tadalafil back pain PSA 06/26 5.5, 08/26 5.4, 07/28 2.4, 11/28 3.2 Prostate biopsy 09/26 inflammation, no cancer Sleep Apnea Anxiety with machine Prior trial tadalafil effective but unable to tolerate secondary to back pain PFSH Medical History (Updated 12/21/23 @ 11:25 by Ranjit Prajapati MD) Elevated PSA Hemorrhoids with complication Depression Anxiety Surgical History Hx of biopsy History of back surgery Family History Mother Epilepsy Father Cancer Brother No problems noted. 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 ) Cognitive needs: No Hearing needs: No Vision needs: No Review of Systems Const Denies chills and Denies fever(s) Card Reports no additional complaints and Denies syncope Resp Denies cough GI Denies abdominal pain and Denies heartburn Reports as per HPI and Denies change in libido Neuro Denies syncope Psych Denies change in libido Endo Denies change in libido Physical Exam Const General: cooperative, healthy appearing, comfortable and no acute distress Orientation/consciousness: patient oriented x3 HEENT Face and sinus: Yes normal facial exam Mouth: moist mucous membranes Neck Neck: Yes normal visual inspection, Yes full ROM and Yes trachea midline Chest Chest palpation & inspection: normal inspection of the chest Resp Effort & Inspection: normal respiratory effort, able to speak in complete sentences and no respiratory distress GI Inspection: Yes normal to inspection Back/Spine/Pelvis Cervical Spine: normal cervical lordosis Thoracic/Lumbar Spine: thoracic and lumbar spine normal to inspection Skin General skin exam: no rashes or lesions noted Neuro General: patient oriented x3, gait normal, tone normal and moves all extremities Extrem General: Yes normal to inspection and Yes capillary refill normal Assessment & Plan Assessment & Plan (1) Weak urinary stream: Code(s): R39.12 - Poor urinary stream Category: Medical Plan Two month follow-up tele Orders: Orders US bladder Today R39.12 - Poor urinary stream Medications: New alfuzosin ER Take before bedtime 10 mg PO BEDTIME 30 days 30 tabs 1RF N32.0 - Bladder- neck obstruction, N40.1 - Benign prostatic hyperplasia with lower urinary tract symptoms, R33.9 - Retention of urine, unspecified, R35.1 - Nocturia, R39.12 - Poor urinary stream Patient Instructions: Imaging studies, laboratory and physical exam results were discussed and reviewed in detail. No major barriers to patient understanding were identified. An opportunity to ask questions regarding the treatment plan was provided. All questions were answered. The patient expressed understanding and agreement with the above treatment plan. The patient is aware they should contact our office by phone for worsening of their current condition or the appearance of new urologic symptoms. Compliance is encouraged with any medications and followup testing that is ordered. It is a privilege to participate in the urologic care of your patient. If you have any questions or concerns regarding treatment for the above conditions, or other urologic issues, please do not hesitate to contact me. The office telephone contact is [phone]. This note is constructed using voice recognition software. While every effort has been made to ensure accuracy director of resource development errors may have been included. Yours sincerely, Dr Ranjit Prajapati MD, [facility] - Urology Providers of Expert, Compassionate Care for the Genitourinary System Coding Level of Care Code Est Pt Level 4 (15677) Diagnoses Weak urinary stream R39.12
== END 2023-12-21 11:49 | disposition home or self-care (01) ==
PROVIDERS: PCP Family Medicine; Visit Provider Urology
DX: R39.12 Poor urinary stream (principal)
CPT/HCPCS: 99214

== ENCOUNTER → 2023-12-21 10:19 | Outpatient (BNVA) | payer OTHER, SELFPAY | PROVIDERS: PCP Family Medicine; Visit Provider Urology | DX: R39.12 Poor urinary stream (principal) | CPT/HCPCS: 99212 ==

== ENCOUNTER 2024-02-07 11:05 | Outpatient (REF) | payer OTHER, SELFPAY ==
--- NOTE | ~2024-02-07 | US_ITS ---
EXAMINATION: US PELVIS LIMITED (BLADDER) CLINICAL INFORMATION: Poor urinary stream.. COMPARISON: None available. TECHNIQUE: Real-time imaging of the bladder. FINDINGS: BLADDER: Fluid-filled. Bilateral ureteral jets are demonstrated. Prevoid bladder volume is 225 mL. Postvoid bladder volume is 60 mL. The prostate gland measures 4.5 cm in maximum dimension. Volume is 33 cc. US/US bladder IMPRESSION: 60 cc residual amount of urine, post void image.. Electronically signed by: Skinny Dee MD 02/13/2024 09:20 AM SHIVA
== END 2024-02-07 11:06 | disposition home or self-care (01) ==
LOC: HO.US 11:05
PROVIDERS: PCP Family Medicine; Visit Provider Urology
DX: R39.12 Poor urinary stream (principal)
CPT/HCPCS: 76857

== ENCOUNTER → 2024-02-07 11:07 | Outpatient (BNV) | payer OTHER, SELFPAY | PROVIDERS: PCP Family Medicine; Visit Provider Radiology Diagnostic Radiology | DX: R39.12 Poor urinary stream (principal) | CPT/HCPCS: 76857 ==

== ENCOUNTER 2024-02-21 10:05 | Outpatient (AMB) | payer OTHER, SELFPAY ==
--- NOTE | 2024-02-21 10:15 | MHC.OFFVIS ---
Intake Visit Reasons: 2m Bladder US(set) Intake Note: Patient is present for 2M BLADDER US Urology Medication:ALFUZOSIN Antibiotic Allergy:PENICILLIN Blood Thinner:NONE Railroad Commissioner Required: No Allergies Penicillins Allergy (Severe, Verified 02/21/24 10:16) Rash iodine Allergy (Intermediate, Verified 02/21/24 10:16) Rash seafood Allergy (Intermediate, Verified 02/21/24 10:16) Anaphylaxis blue dye Adverse Reaction (Severe, Verified 02/21/24 10:16) Swelling HPI Comments Details: Yo is a pleasant male. He is a patient Dr. Zee. He is seen for the following urologic conditions - elevated PSA - lower urinary tract symptoms - prostatitis Medication follow-up Has had alfuzosin - improved emptying Improved flow Bladder ultrasound with prostate 35 g Nocturia ranges from 2-4x - untreated sleep apnea Lower urinary tract symptoms Had been seen with his PCP Referred for urgency and frequency Current therapy oxybutynin Prior therapy terazosin and tamsulosin not tolerated - tadalafil back pain PSA 06/26 5.5, 08/26 5.4, 07/28 2.4, 11/28 3.2 Prostate biopsy 09/26 inflammation, no cancer Sleep Apnea Anxiety with machine Prior trial tadalafil effective but unable to tolerate secondary to back pain PFSH Medical History (Updated 12/21/23 @ 11:25 by Ranjit Prajapati MD) Elevated PSA Hemorrhoids with complication Depression Anxiety Surgical History Hx of biopsy History of back surgery Family History Mother Epilepsy Father Cancer Brother No problems noted. 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 ) Cognitive needs: No Hearing needs: No Vision needs: No Review of Systems Const All systems reviewed & are unremarkable except as noted in HPI and below Reports no additional complaints Resp Reports no additional complaints GI Reports no additional complaints Reports as per HPI Musc Reports no additional complaints Physical Exam Telemedicine evaluation Appropriate responses Regular breathing rate and rhythm HEENT Head: Yes normal to inspection Ears: hearing grossly normal bilaterally Eyes General: appearance normal, both eyes and all related structures Neck Neck: Yes normal visual inspection Chest Chest palpation & inspection: normal inspection of the chest Resp Effort & Inspection: normal respiratory effort and able to speak in complete sentences Telehealth Telehealth Location of provider rendering services: practice address Location of patient: address on file Patient Identification confirmed using: Name, : Yes Telehealth method: voice only Patient verbally consented to treatment: Yes Patient verbally consented to billing insurance company: Yes Patient informed of any privacy concerns related to visit: Yes Assessment & Plan Assessment & Plan (1) Erectile dysfunction: Code(s): N52.9 - Male erectile dysfunction, unspecified Category: Medical (2) Weak urinary stream: Code(s): R39.12 - Poor urinary stream Category: Medical (3) Prostatitis: Code(s): N41.9 - Inflammatory disease of prostate, unspecified Category: Medical Plan Six-month follow-up office Medications: Changed From alfuzosin ER Take before bedtime 10 mg PO BEDTIME 30 days 30 tabs 1RF N32.0 - Bladder-neck obstruction, R35.1 - Nocturia To alfuzosin ER Take before bedtime 10 mg PO BEDTIME 90 days 90 tabs 1RF N32.0 - Bladder-neck obstruction, R35.1 - Nocturia Patient Instructions: Imaging studies, laboratory and physical exam results were discussed and reviewed in detail. No major barriers to patient understanding were identified. An opportunity to ask questions regarding the treatment plan was provided. All questions were answered. The patient expressed understanding and agreement with the above treatment plan. The patient is aware they should contact our office by phone for worsening of their current condition or the appearance of new urologic symptoms. Compliance is encouraged with any medications and followup testing that is ordered. It is a privilege to participate in the urologic care of your patient. If you have any questions or concerns regarding treatment for the above conditions, or other urologic issues, please do not hesitate to contact me. The office telephone contact is [phone]. This note is constructed using voice recognition software. While every effort has been made to ensure accuracy motor bus driver errors may have been included. Yours sincerely, Dr Ranjit Prajapati MD, [facility] - Urology Providers of Expert, Compassionate Care for the Genitourinary System Coding Level of Care Code Tele Est Pt Level 3 (08171) Diagnoses Erectile dysfunction N52.9 Weak urinary stream R39.12 Prostatitis N41.9
== END 2024-02-21 10:44 | disposition home or self-care (01) ==
LOC: HO.HUSH 10:05
PROVIDERS: PCP Family Medicine; Visit Provider Urology
DX: N52.9 Male erectile dysfunction, unspecified (principal); R39.12 Poor urinary stream; N41.9 Inflammatory disease of prostate, unspecified
CPT/HCPCS: 98016

== ENCOUNTER 2024-03-04 10:20 | Outpatient (REF) | payer OTHER, SELFPAY ==
--- NOTE | ~2024-03-04 | XR_ITS ---
CLINICAL HISTORY: M25.512 - Pain in left shoulder Left shoulder four views Comparison: None Findings: No acute fracture or dislocation identified. Mild degenerative change glenohumeral joint. Hill-Sachs deformity superolateral humeral head. Mild degenerative change AC joint.. No radiopaque foreign body noted. Impression: No acute bony abnormality This document has been electronically signed by: Isaac Rosenberg MD on 03/05/2024 19:09:02
== END 2024-03-04 10:21 | disposition home or self-care (01) ==
LOC: HO.XRAY 10:20
PROVIDERS: PCP Family Medicine; Visit Provider Family Medicine
DX: M25.512 Pain in left shoulder (principal); R73.03 Prediabetes
CPT/HCPCS: 73030; 99212

== ENCOUNTER 2024-03-04 10:20 | Outpatient (AMB) | payer OTHER, SELFPAY ==
--- NOTE | 2024-03-04 10:26 | A.OFFPC_ITS ---
Vital Signs 03/04/24 10:35 Height 5 ft 6 in Weight 156 lb BMI 25.2 BP 106/6 L Blood Pressure Location Lt brachial Position Sitting Respiration 14 Pulse 63 Pulse Source Pulse Oximeter Temp 97.8 F Temp Source Oral Pulse Oximetry (%) 98 Oxygen Delivery Method Room Air Intake Visit Reasons: f/u pre-diabetes, chronic conditions Intake Note: f/u pre-DM Allergies Penicillins Allergy (Severe, Verified 03/04/24 10:34) Rash iodine Allergy (Intermediate, Verified 03/04/24 10:34) Rash seafood Allergy (Intermediate, Verified 03/04/24 10:34) Anaphylaxis blue dye Adverse Reaction (Severe, Verified 03/04/24 10:34) Swelling Medication List - Last Reconciled 03/04/24 by Zane Zee MD albuterol sulfate 90 mcg/actuation 2 puffs inhalation QID PRN alfuzosin ER 10 mg PO BEDTIME 90 days benzonatate 100 mg PO TID PRN 10 days buspirone 7.5 mg PO BID btjkxijhtk-xtnuilakujhgh-lsjz 50-325-40 mg 1 tab PO Q6H PRN calcium carbonate (Calcium Antacid) 200 mg PO QID cyclobenzaprine 10 mg PO BEDTIME PRN 30 days epinephrine (EpiPen 2-Toan) 0.3 mg (0.3 mL) IM Q4H PRN 30 days hydroxyzine pamoate 50 mg PO BID PRN loratadine 10 mg PO DAILY naproxen 500 mg PO BID 90 days sertraline 75 mg (1.5 x 50 mg) PO DAILY 90 days Tobacco use date assessed: 05/24/23 Dental Screening Dental Screen Date: 03/01/23 HPI f/u pre-diabetes, chronic conditions HPI Details 58 y/o male presents to f/u pre-diabetes , chronic conditions. Last A1c in November 5.7%. A1c today 5.4%. Notes he could have a better diet. Has complaints of L shoulder pain. [facility], [facility] Medical History (Updated 03/04/24 @ 10:50 by Yo Pedro) Elevated PSA Hemorrhoids with complication Depression Anxiety Surgical History Hx of biopsy History of back surgery Family History Mother Epilepsy Father Cancer Brother No problems noted. 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 1. Little interest or pleasure in doing things: not at all Source: Developed by Drs. Javier Hyatt, Annia Pepper, Keyur Ding and colleagues, with an educational jefferson from [employer]. Thrive Questionnaire Date Thrive assessed: 11/26/23 I am a: Patient What is your living situation today?: I have a place to live, but I am worried about losing it in the future Within the past 12 months, did the food you bought not last and you didn't have the money to get more?: Never true Within the past 12 months, did you worry whether your food would run out before you got money to buy more?: Never true Do you have trouble paying for medicines?: No Do you have trouble getting transportation to medical appointments?: No Do you have trouble paying your heating and electricity bill?: No Do you have trouble taking care of your child, family member or friend?: No Do you have trouble with day-to-day activities such as bathing, preparing meals, shopping, managing finances, etc.?: I choose not to answer this question Are you currently unemployed and looking for a job?: No Are you interested in more education?: No Please select the resources that you would like help with: None Currently or been in a relationship where the following occur: No concerns reported THRIVE Score: 1 AUDIT C Alcohol Use Questionnaire (AUDIT-C) 1. How often do you have a drink containing alcohol?: Never Total Score: 0 DHEERAJ-7 AMB Questionnaire DHEERAJ-7 Date DHEERAJ - 7 assessed: 03/01/23 Feeling nervous, anxious, or on edge: 0 = Not at all Not being able to stop or control worryin = Not at all Worrying too much about different things: 0 = Not at all Trouble relaxin = Nearly every day Being so restless that it is hard to sit still: 3 = Nearly every day Becoming easily annoyed or irritable: 0 = Not at all Feeling afraid as if something awful might happen: 0 = Not at all Total DHEERAJ-7 score (0-4 normal; 5-9 mild; 10-14 moderate; 15-21 severe): 6 Source: Developed by Drs. Javier Hyatt, Annia Pepper, Keyur Ding and colleagues, with an educational jefferson from [employer]. Review of Systems Const Denies chills, Denies fatigue, Denies fever(s), Denies headache(s) and Denies weakness ENT Denies dizziness and Denies headache(s) Card Denies dyspnea Resp Denies cough, Denies dyspnea, Denies wheezing and Denies other (shortness of breath) Musc Details: L shoulder pain Denies numbness and Denies tingling Neuro Denies dizziness, Denies headache(s), Denies numbness, Denies tingling and Denies weakness Psych Denies anxiety and Denies depression Endo Denies fatigue Aller/Immun Denies wheezing Physical exam (Primary Care) Vital Signs: Last Vital Signs Temp 97.8 F 03/04/24 10:35 Pulse 63 03/04/24 10:35 Resp 14 03/04/24 10:35 BP 106/6 L 03/04/24 10:35 Pulse Ox 98 03/04/24 10:35 Oxygen Delivery Method Room Air 03/04/24 10:35 BMI result Body Mass Index 25.2 Tobacco/Smoking Status: Tobacco use Status Tobacco use date assessed 05/24/23 03/04/24 10:26 Patient Tobacco Use Status Never used Tobacco 03/04/24 10:26 e-Cigarette/Vaping Use Never Used 03/04/24 10:26 Thrive Assessment: Date of Thrive Assessment Date Thrive assessed 11/26/23 03/04/24 10:26 Currently or been in a relationship where the following occur: No concerns reported Const General: well developed; No acute distress Nutritional Appearance: well nourished Orientation/consciousness: patient oriented x3 HENMT Head: Yes normocephalic and Yes atraumatic Eyes General: appearance normal, both eyes and all related structures Pupils: Equal, round and reactive pupils present EOM: EOMs intact bilaterally Resp Effort & Inspection: normal respiratory effort Neuro General: patient oriented x3 and gait normal Cranial nerves: Yes Equal, round and reactive pupils present Psych Affect: normal affect Coding Level of Care Code Est Pt Level 3 (54301) Diagnoses Pre-diabetes R73.03 Left shoulder pain M25.512 Assessment & Plan Assessment & Plan (1) Pre-diabetes: Code(s): R73.03 - Prediabetes Category: Medical Plan: A1c?improved?from?5.7%?to?5.4%. Encouraged?diet?lower?in?sugars?and?starches Will?continue?monitor?periodically (2) Left shoulder pain: Code(s): M25.512 - Pain in left shoulder Category: Medical Plan: Left?shoulder?pain?and?likely?recurrent?muscle?strain Referred?for?physical?therapy.??Check?x-ray If?not?improving?or?worsens,?will?refer?to?ortho Will?call?patient?if?action?is?required?when?x- ray?results?are?available.??Otherwise?will?review?with?patient?at?next?visit Orders: Orders XR shoulder LT min 2V Today M25.512 - Pain in left shoulder PT Evaluation and Treatment Today M25.512 - Pain in left shoulder
[2024-03-04 10:35] VITALS: BP 106/6; PULSE 63; RESP 14; TEMP 36.6; O2SAT 98; BMI 25.2
== END 2024-03-04 10:57 | disposition home or self-care (01) ==
PROVIDERS: PCP Family Medicine; Visit Provider Family Medicine
DX: R73.03 Prediabetes (principal); M25.512 Pain in left shoulder

== ENCOUNTER → 2024-03-04 11:21 | Outpatient (BNV) | payer OTHER, SELFPAY | PROVIDERS: PCP Family Medicine; Visit Provider Radiology Diagnostic Radiology | DX: M25.512 Pain in left shoulder (principal) | CPT/HCPCS: 73030 ==

== ENCOUNTER → 2024-03-13 09:41 | Outpatient (AMB) | payer OTHER, SELFPAY ==
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
[2024-03-13 09:43] VITALS: BMI 24.2
== END ==
LOC: HO.HSMS 09:41
PROVIDERS: PCP Family Medicine; Visit Provider Nurse Practitioner Family
DX: G47.9 Sleep disorder, unspecified (principal); D64.9 Anemia, unspecified; R06.83 Snoring; M62.838 Other muscle spasm
CPT/HCPCS: 99214

== ENCOUNTER → 2024-03-13 09:41 | Outpatient (BNVA) | payer OTHER, SELFPAY | PROVIDERS: PCP Family Medicine; Visit Provider Nurse Practitioner Family ==

== ENCOUNTER 2024-03-15 07:00 | Outpatient (REF) | payer OTHER, SELFPAY ==
[2024-03-15 07:22] LABS: MANUAL DIFF FLAG NO
[2024-03-15 07:29] LABS: Basophils Percent Auto 0.7 % (0-2); Eosinophils Absolute Auto 0.1 X10*3/uL (0.0-0.4); Eosinophils Percent Auto 2.4 % (0-4); Hematocrit 39.9 % (42.0-52.0); Hemoglobin 13.1 g/dl (14.0-18.0); Imm Gran Abs Auto 0.02 X10*3/uL (0.00-0.03); Imm Gran Pct Auto 0.3 % (0.0-0.4); Lymphocytes Absolute Auto 2.9 X10*3/uL (1.2-4.9); Lymphocytes Percent Auto 48.6 % (20-40); Mean Corpuscular HGB Conc 32.8 g/dl (31.0-36.0); Mean Corpuscular Volume 85.3 fL (80.0-98.0); Mean Platelet Volume 9.9 fL (9.4-12.4); Monocytes Absolute Auto 0.6 X10*3/uL (0.1-1.2); Monocytes Percent Auto 9.5 % (2-11); Neutrophils Absolute Auto 2.3 x10*3/uL (2.0-8.3); Neutrophils Percent Auto 38.5 % (45-73); Platelet Count 179 X10*3/uL (160-400); Red Blood Count 4.68 X10*6/uL (4.60-5.80); Red Cell Distribution Width 13.2 % (11.0-16.0); White Blood Count 5.9 X10*3/uL (4.8-10.8)
[2024-03-15 08:22] LABS: Alanine Aminotransferase 25 U/L (0-40); Albumin Level 3.8 g/dL (3.5-5.0); Anion Gap 12 (12-20); Aspartate Amino Transferase 27 U/L (5-37); Bilirubin Total 0.5 mg/dL (0.0-1.0); Blood Urea Nitrogen 18 mg/dL (9-16); Calcium 8.7 mg/dL (8.4-10.2); Carbon Dioxide 26 mmol/L (22-29); Chloride 106 mmol/L (96-108); Estimated Glomerular Filt Rate > 60; Ferritin 24 ng/mL (20-250); Glucose Random 94 mg/dL (60-115); Iron 85 mcg/dL (45-160); Percent Iron Saturation 28 % (15-50); Potassium 4.2 mmol/L (3.3-5.1); Sodium 140 mmol/L (135-145); TSH reflex Free T4 2.71 uIU/mL (0.32-4.0); Total Iron Binding Capacity 300 mcg/dL (228-428); Unsaturated Iron Binding 215 ug/dL
[2024-03-15 08:29] LABS: Folate 11.1 ng/mL (> or = 4.0); Vitamin B12 588 pg/mL (200-900)
[2024-03-15 08:35] LABS: Alkaline Phosphatase 58 U/L (39-117)
[2024-03-15 08:42] LABS: Erythrocyte Sedimentation Rate 5 MM/HR (0-15)
[2024-03-17 07:47] LABS: CRP High Sensitivity 1.2 mg/L
[2024-03-19 12:03] LABS: Methylmalonic Acid 108 nmol/L (55-335)
[2024-03-20 13:13] LABS: Vitamin D 25-OH, D2 <4 ng/mL; Vitamin D 25-OH, D3 28 ng/mL; Vitamin D 25-OH, Total 28 ng/mL (30-100)
[2024-03-21 15:33] LABS: Vitamin B6 37.1 ng/mL (2.1-21.7)
== END 2024-03-15 07:01 | disposition home or self-care (01) ==
LOC: HO.LAB 07:00
PROVIDERS: PCP Family Medicine; Visit Provider Nurse Practitioner Family
DX: D64.9 Anemia, unspecified (principal); M19.90 Unspecified osteoarthritis, unspecified site
CPT/HCPCS: 36415; 80053; 82306; 82607; 82728; 82746; 83090; 83540; 83921; 84207; 84443; 85025; 85652; 86141

== ENCOUNTER 2024-04-01 09:19 | Outpatient (AMB) | payer OTHER, SELFPAY ==
--- NOTE | 2024-04-01 09:25 | A.OFFPC_ITS ---
Vital Signs 04/01/24 09:35 Height 5 ft 6 in Weight 163 lb BMI 26.3 BP 110/60 Blood Pressure Location Lt brachial Position Sitting Respiration 12 Pulse 64 Pulse Source Pulse Oximeter Temp 98.6 F Temp Source Oral Pulse Oximetry (%) 94 Oxygen Delivery Method Room Air Intake Visit Reasons: f/u L shoulder pain Intake Note: left shoulder pain Hedis Specialist Required: No Allergies Penicillins Allergy (Severe, Verified 04/01/24 09:34) Rash iodine Allergy (Intermediate, Verified 04/01/24 09:34) Rash seafood Allergy (Intermediate, Verified 04/01/24 09:34) Anaphylaxis blue dye Adverse Reaction (Severe, Verified 04/01/24 09:34) Swelling Medication List - Last Reconciled 04/01/24 by Zane Zee MD albuterol sulfate 90 mcg/actuation 2 puffs inhalation QID PRN alfuzosin ER 10 mg PO BEDTIME 90 days benzonatate 100 mg PO TID PRN 10 days buspirone 7.5 mg PO BID aybegnlyjj-vldjmibhuqivp-btyv 50-325-40 mg 1 tab PO Q6H PRN calcium carbonate (Calcium Antacid) 200 mg PO QID cholecalciferol (vitamin D3) 1,250 mcg PO QWEEK 12 days cyclobenzaprine 10 mg PO BEDTIME PRN 30 days epinephrine (EpiPen 2-Toan) 0.3 mg (0.3 mL) IM Q4H PRN 30 days hydroxyzine pamoate 50 mg PO BID PRN loratadine 10 mg PO DAILY naproxen 500 mg PO BID 90 days sertraline 75 mg (1.5 x 50 mg) PO DAILY 90 days Tobacco use date assessed: 05/24/23 Dental Screening Dental Screen Date: 03/01/23 HPI f/u L shoulder pain HPI Details 59 y/o male presents to f/u L shoulder p ain. Pt notes no one has reached out for physical therapy. L shoulder Xray showed: No acute fracture or dislocation identified. Mild degenerative change glenohumeral joint. Hill-Sachs deformity superolateral humeral head. Mild degenerative change AC joint.. No radiopaque foreign body noted. Notes he has been feeling unwell with a ? viral illness since Sunday evening. [facility] Medical History Elevated PSA Hemorrhoids with complication Depression Anxiety Surgical History Hx of biopsy History of back surgery Family History Mother Epilepsy Father Cancer Brother No problems noted. 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 2. Feeling down, depressed, or hopeless: not at all 3. Trouble falling or staying asleep, or sleeping too much: several days 4. Feeling tired or having little energy: several days 5. Poor appetite or overeating: not at all 6. Feeling bad about yourself - or that you are a failure or have let yourself or your family down: not at all 7. Trouble concentrating on things, such as reading the newspaper or watching television: not at all 8. Moving or speaking so slowly that other people could have noticed. Or the opposite - being so fidgety or restless that you have been moving around a lot more than usual: not at all 9. Thoughts that you would be better off or of hurting yourself in some way: not at all Source: Developed by Drs. Javier Hyatt, Annia Pepper, Keyur Ding and colleagues, with an educational jefferson from [employer]. Thrive Questionnaire Date Thrive assessed: 03/04/24 I am a: Patient What is your living situation today?: I have a place to live, but I am worried about losing it in the future Within the past 12 months, did the food you bought not last and you didn't have the money to get more?: Never true Within the past 12 months, did you worry whether your food would run out before you got money to buy more?: Never true Do you have trouble paying for medicines?: No Do you have trouble getting transportation to medical appointments?: No Do you have trouble paying your heating and electricity bill?: No Do you have trouble taking care of your child, family member or friend?: No Do you have trouble with day-to-day activities such as bathing, preparing meals, shopping, managing finances, etc.?: I choose not to answer this question Are you currently unemployed and looking for a job?: No Are you interested in more education?: No Please select the resources that you would like help with: None Currently or been in a relationship where the following occur: No concerns reported THRIVE Score: 1 AUDIT C Alcohol Use Questionnaire (AUDIT-C) 2. How many drinks containing alcohol do you have on a typical day when you are drinking?: 1 or 2 3. How often do you have six or more drinks on one occasion?: Never Total Score: 0 DHEERAJ-7 AMB Questionnaire DHEERAJ-7 Date DHEERAJ - 7 assessed: 03/01/23 Source: Developed by Drs. Javier Hyatt, Annia Pepper, Keyur Ding and colleagues, with an educational jefferson from [employer]. Review of Systems Const Denies chills, Denies fatigue, Denies fever(s), Denies headache(s) and Denies weakness ENT Denies dizziness and Denies headache(s) Card Denies dyspnea Resp Denies cough, Denies dyspnea, Denies wheezing and Denies other (shortness of breath) Musc Denies numbness and Denies tingling Neuro Denies dizziness, Denies headache(s), Denies numbness, Denies tingling and Denies weakness Psych Denies anxiety and Denies depression Endo Denies fatigue Aller/Immun Denies wheezing Physical exam (Primary Care) Vital Signs: Last Vital Signs Temp 98.6 F 04/01/24 09:35 Pulse 64 04/01/24 09:35 Resp 12 04/01/24 09:35 BP 110/60 04/01/24 09:35 Pulse Ox 94 04/01/24 09:35 Oxygen Delivery Method Room Air 04/01/24 09:35 BMI result Body Mass Index 26.3 Tobacco/Smoking Status: Tobacco use Status Tobacco use date assessed 05/24/23 04/01/24 09:26 Patient Tobacco Use Status Never used Tobacco 04/01/24 09:26 e-Cigarette/Vaping Use Never Used 04/01/24 09:26 Thrive Assessment: Date of Thrive Assessment Date Thrive assessed 03/04/24 04/01/24 09:26 Currently or been in a relationship where the following occur: No concerns reported Const General: well developed; No acute distress Nutritional Appearance: well nourished Orientation/consciousness: patient oriented x3 HENMT Head: Yes normocephalic and Yes atraumatic Eyes General: appearance normal, both eyes and all related structures Pupils: Equal, round and reactive pupils present EOM: EOMs intact bilaterally Resp Effort & Inspection: normal respiratory effort Auscultation: clear to auscultation bilaterally Cardio Rate: regular rate Rhythm: regular rhythm Heart sounds: S1 normal heart sound present, S2 normal heart sound present, no gallops, no murmurs and no rubs Neuro General: patient oriented x3 and gait normal Cranial nerves: Yes Equal, round and reactive pupils present Psych Affect: normal affect Coding Level of Care Code Est Pt Level 4 (97746) Diagnoses Left shoulder pain M25.512 Viral illness B34.9 Assessment & Plan Assessment & Plan (1) Left shoulder pain: Code(s): M25.512 - Pain in left shoulder Category: Medical Plan: Ongoing?left?shoulder?pain?though?mildly?improved?with?naproxen. Had?not?been?contacted?by?physical?therapy We?did?order?and?can?call?physical?therapy?himself X-ray?shows: No acute fracture or dislocation identified. Mild degenerative change glenohumeral joint. Hill-Sachs deformity superolateral humeral head. Mild degenerative change AC joint.. No radiopaque foreign body noted. Referred?to?Ortho (2) Viral illness: Code(s): B34.9 - Viral infection, unspecified Category: Medical Plan: Viral?illness There?is?no?antibiotic?medication?for?viruses.??They?must?run?their?course.??Mos t?average?5-7?days?but?7-10?days?is?not?uncommon?and?up ?to?14?days?is?still?possible.??A?cough?is?often?the?last?symptom?to?resolve?and ?this?can?last?for?weeks?in?some?cases. Rest Hydrate?well?-??Drink?plenty?of?fluids.??Especially?water. Tylenol?or?ibuprofen?for?muscle?aches,?headache,?fever/discomfort Can?use?yica-ouo-aoimzzm?medications?for?cough?such?as?Delsym?or?DayQuil.??Presc ription?cough?medicines?have?been?shown?to?be?no?better. Checking?nasal?swab Covid/Flu/RSV Will?give?him?a?note?to?be?out?of?work?through?tomorrow.??We?can?addendum?this?i f?positive?for?any?of?the?above Plan L shoulder Xray showed: No acute fracture or dislocation identified. Mild degenerative change glenohumeral joint. Hill-Sachs deformity superolateral humeral head. Mild degenerative change AC joint.. No radiopaque foreign body noted. Orders: Orders AMB Hemoglobin A1c 03/04/24 R73.03 - Prediabetes SARS-CoV2/FLU/RSV Today B34.9 - Viral infection, unspecified, Z20.822 - Contact with and (suspected) exposure to COVID-19 Comprehensive [place]. Panel Fast Today B34.9 - Viral infection, unspecified, Z00.00 - Encounter for general adult medical examination without abnormal findings Microalbumin, Random (w Creat) Today B34.9 - Viral infection, unspecified, I10 - Essential (primary) hypertension Prostate Specific Antigen Scr Today B34.9 - Viral infection, unspecified, Z12.5 - Encounter for screening for malignant neoplasm of prostate UA and rflx microscopic Today B34.9 - Viral infection, unspecified, Z00.00 - Encounter for general adult medical examination without abnormal findings TSH reflex Free T4 Today B34.9 - Viral infection, unspecified, Z00.00 - Encounter for general adult medical examination without abnormal findings Complete Blood Count Auto Diff Today B34.9 - Viral infection, unspecified, Z00.00 - Encounter for general adult medical examination without abnormal findings Lipid Panel Today B34.9 - Viral infection, unspecified, Z00.00 - Encounter for general adult medical examination without abnormal findings Referrals Orthopedics Referral M25.512 - Pain in left shoulder
[2024-04-01 09:35] VITALS: BP 110/60; PULSE 64; RESP 12; TEMP 37; O2SAT 94; BMI 26.3
== END 2024-04-01 10:02 | disposition home or self-care (01) ==
PROVIDERS: PCP Family Medicine; Visit Provider Family Medicine
DX: M25.512 Pain in left shoulder (principal); B34.9 Viral infection, unspecified

== ENCOUNTER 2024-04-01 09:19 | Outpatient (REF) | payer OTHER, SELFPAY ==
[2024-04-01 12:40] LABS: Influenza A PCR NEGATIVE (Negative); Influenza B PCR NEGATIVE (Negative); Resp Syncy Virus RNA Qual PCR NEGATIVE (Negative); SARS COV2 PCR INHOUSE POSITIVE (Negative)
== END 2024-04-01 09:20 | disposition home or self-care (01) ==
LOC: HO.LAB 09:19
PROVIDERS: PCP Family Medicine; Visit Provider Family Medicine
DX: M25.512 Pain in left shoulder (principal); U07.1 COVID-19; Z20.822 Contact with and (suspected) exposure to COVID-19; Z79.899 Other long term (current) drug therapy
CPT/HCPCS: 0241U; 99212

== ENCOUNTER 2024-06-11 09:28 | Outpatient (AMB) | payer OTHER, SELFPAY ==
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
[2024-06-11 09:44] VITALS: BMI 26.3
== END 2024-06-11 10:13 | disposition home or self-care (01) ==
LOC: HO.HOS 09:29
PROVIDERS: PCP Family Medicine; Visit Provider Physician Assistant
DX: M75.22 Bicipital tendinitis, left shoulder (principal)
CPT/HCPCS: 20610; 99213

== ENCOUNTER → 2024-06-11 09:28 | Outpatient (BNVA) | payer OTHER, SELFPAY | PROVIDERS: PCP Family Medicine; Visit Provider Physician Assistant | DX: M75.22 Bicipital tendinitis, left shoulder (principal) | CPT/HCPCS: 20610; 99212; J1010; J2003 ==

== ENCOUNTER 2024-08-22 10:25 | Outpatient (AMB) | payer OTHER, SELFPAY ==
--- NOTE | 2024-08-22 10:57 | MHC.OFFVIS ---
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 He is a patient Dr. Zee. He is seen for the following urologic conditions - elevated PSA - lower urinary tract symptoms - prostatitis Effective bladder emptying PVR 30 cc Stopped using alfuzosin Prior prostatitis Has continued evaluation for sleep apnea Bladder ultrasound with prostate 35 g Twelve month follow-up Lower urinary tract symptoms Had been seen with his PCP Referred for urgency and frequency Current therapy oxybutynin Prior therapy terazosin and tamsulosin not tolerated - tadalafil back pain PSA 06/26 5.5, 08/26 5.4, 07/28 2.4, 11/28 3.2 Prostate biopsy 09/26 inflammation, no cancer Sleep Apnea Anxiety with machine Prior trial tadalafil effective but unable to tolerate secondary to back pain PFSH Medical History Elevated PSA Hemorrhoids with complication Depression Anxiety Surgical History Hx of biopsy History of back surgery Family History Mother Epilepsy Father Cancer Brother No problems noted. 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 ) Cognitive needs: No Hearing needs: No Vision needs: No Review of Systems Const Denies chills and Denies fever(s) Card Reports no additional complaints and Denies syncope Resp Denies cough GI Denies abdominal pain and Denies heartburn Reports as per HPI and Denies change in libido Neuro Denies syncope Psych Denies change in libido Endo Denies change in libido Physical Exam Const General: cooperative, healthy appearing, comfortable and no acute distress Orientation/consciousness: patient oriented x3 HEENT Face and sinus: Yes normal facial exam Mouth: moist mucous membranes Neck Neck: Yes normal visual inspection, Yes full ROM and Yes trachea midline Chest Chest palpation & inspection: normal inspection of the chest Resp Effort & Inspection: normal respiratory effort, able to speak in complete sentences and no respiratory distress GI Inspection: Yes normal to inspection Back/Spine/Pelvis Cervical Spine: normal cervical lordosis Thoracic/Lumbar Spine: thoracic and lumbar spine normal to inspection Skin General skin exam: no rashes or lesions noted Neuro General: patient oriented x3, gait normal, tone normal and moves all extremities Extrem General: Yes normal to inspection and Yes capillary refill normal Assessment & Plan Assessment & Plan (1) Erectile dysfunction: Code(s): N52.9 - Male erectile dysfunction, unspecified Category: Medical (2) Urinary urgency: Code(s): R39.15 - Urgency of urination Category: Medical Plan Twelve month follow-up Medications: Discontinued alfuzosin ER Take before bedtime Discontinued Reason: Doctor's Order 10 mg PO BEDTIME 90 days 90 tabs 1RF N32.0 - Bladder-neck obstruction, R35.1 - Nocturia Patient Instructions: This note is constructed using voice recognition software. While every effort has been made to ensure accuracy automatic pattern edger errors may have been included. Imaging studies, laboratory and physical exam results were discussed and reviewed in detail. No major barriers to patient understanding were identified. An opportunity to ask questions regarding the treatment plan was provided. All questions were answered. The patient expressed understanding and agreement with the above treatment plan. The patient is aware they should contact our office by phone for worsening of their current condition or the appearance of new urologic symptoms. Compliance is encouraged with any medications and followup testing that is ordered. It is a privilege to participate in the urologic care of your patient. If you have any questions or concerns regarding treatment for the above conditions, or other urologic issues, please do not hesitate to contact me. The office telephone contact is [phone]. Sincerely, Dr Ranjit Prajapati MD, [facility] - Urology Compassionate Specialist Care for the Genitourinary System Coding Level of Care Code Est Pt Level 3 (39117) Diagnoses Erectile dysfunction N52.9 Urinary urgency R39.15
== END 2024-08-22 11:18 | disposition home or self-care (01) ==
LOC: HO.HUSH 10:26
PROVIDERS: PCP Family Medicine; Visit Provider Urology
DX: N52.9 Male erectile dysfunction, unspecified (principal); R39.15 Urgency of urination; Z13.9 Encounter for screening, unspecified
CPT/HCPCS: 99213

== ENCOUNTER → 2024-08-22 10:25 | Outpatient (BNVA) | payer OTHER, SELFPAY | PROVIDERS: PCP Family Medicine; Visit Provider Urology | DX: N52.9 Male erectile dysfunction, unspecified (principal); R39.15 Urgency of urination; N41.9 Inflammatory disease of prostate, unspecified; R97.20 Elevated prostate specific antigen [PSA] | CPT/HCPCS: 51798; 81003; 99212 ==

== ENCOUNTER 2024-09-08 09:31 | Outpatient (AMB) | payer OTHER, SELFPAY ==
--- NOTE | 2024-09-08 09:56 | AM.OFFWIN_ITS ---
Intake Vital Signs 09/08/24 09:57 Height 5 ft 6 in Weight 156 lb BMI 25.2 BP 130/70 Blood Pressure Location Lt brachial Position Sitting Pulse 58 Pulse Source Pulse Oximeter Temp 97.8 F Temp Source Oral Pulse Oximetry (%) 99 Oxygen Delivery Method Room Air Intake Visit Reasons: EP-b/l ear ache Intake Note: presents with bilateral ear pain; LT>RT Patient Tobacco Use Status: Never used Tobacco Allergies Penicillins Allergy (Severe, Verified 09/08/24 10:03) Rash iodine Allergy (Intermediate, Verified 09/08/24 10:03) Rash seafood Allergy (Intermediate, Verified 09/08/24 10:03) Anaphylaxis blue dye Adverse Reaction (Severe, Verified 09/08/24 10:03) Swelling Do you need a note to return to daycare/school/sports/work: No HPI HPI Comments History of Present Illness Details History of Present Illness - The patient is a 59-year-old male pres enting with ear congestion and vertigo. - Ear congestion has been ongoing since April, initially identified as fluid behind the ear. - Treatment with Flonase and a possible antihistamine was initiated, but symptoms, including vertigo, persist. - The patient experiences disorientation , especially when lying down, and has avoided swimming to prevent exacerbation. - No ENT specialist consultation has occ urred yet, though it is being considered due to ongoing symptoms. - Examination showed no significant flui d in the ear, with some ear wax noted. Physical Exam General: Cooperative, healthy appearing, comfortable, no acute distress and well developed Orientation: Patient oriented x3 Head: nc/at Ears: Hearing grossly normal bilaterally. Left ear normal canal, no discharge noted. TM is normal and not bulging. Effusion noted. Right ear has some cerumen in the canal and TM is normal. Nose: Normal external nose present Face and sinus: Normal facial exam Eyes: Appearance normal, both eyes and all related structures Neck: Normal visual inspection and Yes full ROM Respiratory: Normal respiratory effort and able to speak in complete sentences. Clear to auscultation bilaterally Cardiovascular: Regular rate and rhythm. Normal S1 and S2 GI: Normal to inspection. Soft to palpation and nontender Skin: No rashes or lesions noted Neuro: Patient oriented x3 Patient was informed and verbally consented to the use of an ambient scribe for clinic note documentation during this visit. [facility] Medical History Elevated PSA Hemorrhoids with complication Depression Anxiety Surgical History Hx of biopsy History of back surgery Family History Mother Epilepsy Father Cancer Brother No problems noted. 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 ) Cognitive needs: No Hearing needs: No Vision needs: No Review of Systems Const All systems reviewed & are unremarkable except as noted in HPI and below Physical Exam Vital Signs: Last Vital Signs Temp 97.8 F 09/08/24 09:57 Pulse 58 09/08/24 09:57 BP 130/70 09/08/24 09:57 Pulse Ox 99 09/08/24 09:57 Oxygen Delivery Method Room Air 09/08/24 09:57 BMI result Body Mass Index 25.2 Assessment & Plan Assessment & Plan (1) Left ear pain: Code(s): H92.02 - Otalgia, left ear Plan Most likely effusion vs ET dysfunction vs OE vs OM Plan - Referral to an ENT specialist for further evaluation of ear congestion and vertigo. - No antibiotics required as there is no infection. - continue with cetirizine and flonase daily - tylenol or motrin as needed - Eustachian tube dysfunction to be considered, with specialist intervention recommended. Orders: Referrals Ear/Nose/Throat Referral H92.02 - Otalgia, left ear Coding Level of Care Code Est Pt Level 3 (94393) Diagnoses Left ear pain H92.02
[2024-09-08 09:57] VITALS: BP 130/70; PULSE 58; TEMP 36.6; O2SAT 99; BMI 25.2
== END 2024-09-08 10:31 | disposition home or self-care (01) ==
PROVIDERS: PCP Family Medicine; Visit Provider Physician Assistant Medical
DX: H92.02 Otalgia, left ear (principal)

== ENCOUNTER → 2024-09-08 09:31 | Outpatient (BNVA) | payer OTHER, SELFPAY | PROVIDERS: PCP Family Medicine; Visit Provider Physician Assistant Medical | DX: H92.02 Otalgia, left ear (principal) | CPT/HCPCS: 99212 ==